=== PATIENT | male | born 1960 | race Caucasian/White ===

== ENCOUNTER 2021-01-17 13:17 | Emergency (ER) | payer BC, SELFPAY ==
[2021-01-17] VITALS (20 sets, daily range): BP systolic 92–128; BP diastolic 32–70; PULSE 105–117; RESP 18–20; TEMP 36.6–36.9; O2SAT 91–100; BMI 27.1
--- NOTE | 2021-01-17 13:19 | ECG_ITS ---
APPROVED REPORT Exam: Resting ECG HR:115 bpm ECG Measurements Heart Rate 115 AXES MA 132 P 68 QRSd 88 QRS -3 QT 324 T 180 QTc 448 Conclusion Sinus tachycardia Marked ST abnormality, possible inferior subendocardial injury Abnormal ECG Electronically signed by : James hCong, 01/17/2021 18:53:57
--- NOTE | 2021-01-17 13:19 | XR_ITS ---
PROCEDURE: XR CHEST PORTABLE CLINICAL HISTORY: chest pain COMPARISON: CT CT ANGIO CHEST from 01/17/2021 there are no prior x-ray studies available for comparison. FINDINGS: There is pulmonary vascular congestion and changes related to chronic interstitial this thickening. Superimposed process could be obscured. Patient has had prior median sternotomy. Cardiac silhouette is within normal limits. Mediastinal contours are unremarkable. There are no pleural effusions. IMPRESSION: No acute findings. Pulmonary vascular congestion. With right basilar bronchiectasis and chronic interstitial thickening. Superimposed process cannot be excluded. Dictated by: Charley Ruiz 01/17/2021 14:32 Charley Ruiz in [facility] 01/17/2021 14:32
--- NOTE | 2021-01-17 13:19 | CT_ITS ---
PROCEDURE: CT ANGIO CHEST CLINCIAL INDICATION: chest pain, to back COMPARISON: CR XR CHEST PORTABLE from 01/17/2021 TECHNIQUE: IV Contrast: 100 cc Isovue 370 followed by 40 cc saline Axial images obtained with sagittal and coronal reformats. All CT scans at the facility use one or more dose reduction, viz: automated exposure control, ma/kV adjustment per patient size (including targeted exams where dose is matched to indication, i.e. head), or iterative reconstruction technique. FINDINGS: Patient is status prior median sternotomy. 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 There is no infiltrate. There is bibasilar pleural parenchymal scarring. There is developing bibasilar interstitial edema. There is peribronchial interstitial edema. There is no infiltrate. There are no suspicious pulmonary nodules. There are no pleural effusions. Visualized portions of the thyroid gland are unremarkable. There is no suspicious adenopathy. There is prominence of the pulmonary trunks suspicious for pulmonary arterial hypertension. The thoracic aorta has a normal appearance without dissection or aneurysmal dilatation. There is no pulmonary embolus. There is a no pericardial effusion. The visualization of the upper abdomen is available. Refer to CT abdomen and pelvis for abdomen findings. IMPRESSION: Developing interstitial edema. Probable pulmonary arterial hypertension. Refer to abdomen pelvis CT for abdomen pelvis findings Dictated by: Charley Ruiz MD 01/17/2021 14:47 Charley Ruiz MD in [facility] 01/17/2021 14:47
[2021-01-17 13:26] LABS: Basophils % 0.3 % (0.1-2.0); Eosinophils % 0.1 % (0.1-12.0); Lymphocytes # 2.5 K/mm3 (0.7-4.5); Lymphocytes % 19.3 % (10-50); Mean Corpuscular HGB Conc 25.7 g/dL (31.8-35.4); Mean Corpuscular Hemoglobin 16.6 pg (27.0-31.2); Mean Corpuscular Volume 64.5 fl (80-94); Mean Platelet Volume 8.5 fl (7.4-10.4); Monocytes # 0.6 K/mm3 (0.1-1.0); Monocytes % 4.4 % (1.7-9.3); Neutrophils # 9.7 K/mm3 (1.8-7.8); Neutrophils % 75.9 % (37.0-80.0); Platelet Count 382 K/mm3 (142-424); Red Blood Count 2.76 M/mm3 (4.60-6.20); Red Cell Distribution Width 15.9 % (11.5-17.5); White Blood Count 12.8 K/mm3 (4.8-10.8)
--- NOTE | 2021-01-17 13:27 | HMH.EDGENADL ---
ED Disposition Clinical Impression: Acute blood loss anemia, NSTEMI (non-ST elevated myocardial infarction) GI bleed Qualifiers: GI bleed type/associated pathology: unspecified gastrointestinal hemorrhage type Qualified Code(s): K92.2 - Gastrointestinal hemorrhage, unspecified Disposition: Xfer Critical Access Hosp Condition on Discharge: Critical Referrals: Dodie Thompson [Primary Care Provider] - Time of Disposition: 15:33 - Critical Care Critical Care Time: Yes Attestation: On , the high probability of a clinically significant, sudden or life threatening deterioration of the following system(s) required my full and direct attention, intervention and personal management. The time I documented below is in addition to time spent performing reported procedures but includes the following listed in this critical care notation. Total Critical Care Time: 35 Vital system(s) involved:: Circulatory Failure My critical care processes included: Assessment & monitoring of V/S, Initial and Re-exams, Data Review/Interpretation, Coordinating Care, Medication Orders and management, Documentation Medical Decision Making - Medical Records Medical records reviewed: Yes: I reviewed the patient's medical records. - Janak Inquiry Pt receiving controlled substance: No Vital Signs: 01/17/21 13:17 01/17/21 13:34 01/17/21 15:00 Temperature 98.1 F Temperature Source Oral Pulse Rate [Left Radial] 117 H 107 H 112 H Respiratory Rate 20 Blood Pressure [Right Arm] 92/61 L 92/54 L 102/60 L Blood Pressure Mean [Right Arm] 71 66 74 Blood Pressure Source [Right Arm] Automatic Cuff Automatic Cuff Automatic Cuff Blood Pressure Position [Right Arm] Sitting Sitting Sitting 02 Sat by Pulse Oximetry 91 L 99 100 Oxygen Delivery Method Room Air Nasal Cannula Room Air Oxygen Flow Rate (LPM) 2 - Lab Data Lab Results 01/17/21 13:18: WBC 12.8 H, RBC 2.76 L, Hgb 4.6 L*, Hct 17.8 L*, MCV 64.5 L, MCH 16.6 L, MCHC 25.7 L, RDW 15.9, Plt Count 382, MPV 8.5, Neut % (Auto) 75.9, Lymph % (Auto) 19.3, [place] % (Auto) 4.4, Eos % (Auto) 0.1, Baso % (Auto) 0.3, Neut # (Auto) 9.7 H, Lymph # (Auto) 2.5, [place] # (Auto) 0.6, Eos # (Auto) 0.0, Baso # (Auto) 0.0 01/17/21 13:18: Sodium 137, Potassium 4.4, Chloride 104, Carbon Dioxide 13 L, Anion Gap 24.4 H, BUN 22 H, Creatinine 0.90, Estimated Creat Clear 112, Estimated GFR 86, Est GFR ( Amer) 104, Glucose 180 H, Calcium 9.9, Total Bilirubin 0.4, AST 35, ALT 29, Alkaline Phosphatase 69, Troponin I 0.41 H, Total Protein 7.1, Albumin 4.6, Globulin 2.5, Albumin/Globulin Ratio 1.8 01/17/21 13:36: Stool Occult Blood Positive A 01/17/21 13:43: Blood Type B Positive, Crossmatch (AHG) See Detail 01/17/21 14:20: Blood Type Confirm B Positive Result diagrams: 01/17/21 13:18 01/17/21 13:18 Orders (Tests/Meds): ED MEDICATIONS Generic Name Dose Route Start Last Admin Trade Name Freq PRN Reason Stop Dose Admin Sodium Chloride 250 mls @ 25 mls/hr 01/17/21 14:00 01/17/21 15:07 Sod Chlor 0.9% 250ml Bag IV 01/18/21 13:59 25 mls/hr .Q10H NAOMIE Administration Discontinued Medications Generic Name Dose Route Start Last Admin Trade Name Freq PRN Reason Stop Dose Admin Aspirin 325 mg 01/17/21 13:20 01/17/21 13:30 Aspirin 325mg Tablet PO 01/17/21 13:21 325 mg ONCE ONE Administration Iopamidol 100 ml 01/17/21 14:15 01/17/21 14:16 Iopamidol-370 (76%);100ml Bottle IV 01/17/21 14:16 100 ml ONCE ONE Administration Sodium Chloride 50 ml 01/17/21 14:15 01/17/21 14:16 0.9 % Sodium Chloride 50 Ml Vial IV 01/17/21 14:16 50 ml ONCE ONE Administration Sodium Chloride 10 ml 01/17/21 14:15 01/17/21 14:16 Sodium Chloride 0.9% 10ml Syr (Rad Only) IV 01/17/21 14:16 10 ml ONCE ONE Administration ORDERS Category Date Time Status Transfuse RBC's [Red Blood Cells] Stat [facility] 01/17/21 13:43 Results Type and Screen Stat [facility] 01/17/21 13:43 Results Covid-19 Nasal PC
--- NOTE | 2021-01-17 13:33 | CT_ITS ---
Procedure: CT ANGIO ABDOMEN PELVIS CLINICAL HISTORY: abdominal pain, anemia 100ml Optiray 350 COMPARISON: CT CT ANGIO CHEST from 01/17/2021 TECHNIQUE: IV Contrast: 100ml Isovue 370 Axial images obtained with sagittal and coronal reformats. All CT scans at the facility use one or more dose reduction, viz: automated exposure control, ma/kV adjustment per patient size (including targeted exams where dose is matched to indication, i.e. head), or iterative reconstruction technique. FINDINGS: Refer to chest CT dictation obtained on the same date for chest findings. There is no intraperitoneal free air or free fluid. The solid abdominal organs have a normal appearance on the arterial phase image acquisition. There is mild prostatic enlargement. Urinary bladder and seminal vesicles are unremarkable. There are scattered diverticuli within the descending and sigmoid colon. Linear high density along the mucosal surface indicates probable active gastric bleeding. Less likely this could represent an ingested substance. Remainder of the GI tract is unremarkable. There is no abdominal or pelvic adenopathy. There is scattered atherosclerotic calcification within the aorta and branch vessels which causes variable narrowing in the iliac arteries. IMPRESSION: Active extravasation of contrast during arterial phase into the gastric antrum. ER staff was notified of this finding. Dictated by: Charley Ruiz 01/17/2021 15:11 Charley Ruiz in [facility] 01/17/2021 15:11
--- NOTE | 2021-01-17 13:33 | PC.NURSE ---
Critical lab values called to LESLY Kimbrough
[2021-01-17 13:34] LABS: Chloride 104 mmol/L (98-107); Potassium 4.4 mmoL/L (3.5-5.1); Sodium 137 mmol/L (136-145)
[2021-01-17 13:37] LABS: Alanine Aminotransferase 29 U/L (12-78); Albumin Level 4.6 g/dl (3.5-5.0); Albumin/Globulin Ratio 1.8 (1.1-1.8); Alkaline Phosphatase 69 U/L (38-126); Anion Gap 24.4 mEq/L (5-15); Aspartate Amino Transferase 35 U/L (17-59); Bilirubin,Total 0.4 mg/dl (0.2-1.3); Blood Urea Nitrogen 22 mg/dl (9-20); Calcium 9.9 mg/dl (8.4-10.2); Carbon Dioxide 13 mmol/L (22.0-30.0); Creatinine Clearance Estimated 112 mL/min (50-200); Estimated Glomerular Filt Rate 86 ml/min (>60); GFR (African American) 104 ML/MIN (>60); Globulin 2.5 g/dL (1.3-3.2); Glucose 180 mg/dl (74-100); Total Protein,Serum 7.1 g/dl (6.3-8.2)
[2021-01-17 13:45] LABS: Occult Blood,Stool Positive (Negative)
[2021-01-17 13:49] LABS: Troponin I 0.41 ng/ml (0.00-0.034)
[2021-01-17 13:50] LABS: Hematocrit 17.8 % (42.0-52.0); Hemoglobin 4.6 g/dL (14.1-18.0)
--- NOTE | 2021-01-17 13:51 | PC.NURSE ---
Rad at bedside
--- NOTE | 2021-01-17 13:57 | PC.NURSE ---
Pt to rad.
--- NOTE | 2021-01-17 14:08 | PC.NURSE ---
calling [facility] to get medical records
--- NOTE | 2021-01-17 15:18 | PC.NURSE ---
Radiologist gave critical report to ED provider at this time, [facility] contacted at this time for possible patient transfer.
--- NOTE | 2021-01-17 15:19 | PC.NURSE ---
spoke with radiologist regarding CT findings
--- NOTE | 2021-01-17 15:19 | PC.NURSE ---
Calling [facility] at this time
--- NOTE | 2021-01-17 15:23 | PC.NURSE ---
Notified Blood was ready
--- NOTE | 2021-01-17 15:24 | PC.NURSE ---
DEB DUKE speaking with Dr. Archibald at [facility].
[2021-01-17 17:22] LABS: Troponin I 0.92 ng/ml (0.00-0.034)
--- NOTE | 2021-01-17 17:22 | PC.NURSE ---
critical trop called to Jhonatan Khanna RN
== END 2021-01-17 17:42 | disposition critical access hospital (66) ==
PROVIDERS: Emergency Provider Emergency Medicine; PCP Family Medicine
DX: I21.4 Non-ST elevation (NSTEMI) myocardial infarction (principal); K92.2 Gastrointestinal hemorrhage, unspecified; D62 Acute posthemorrhagic anemia; E11.65 Type 2 diabetes mellitus with hyperglycemia; I25.10 Atherosclerotic heart disease of native coronary artery without angina pectoris; F17.210 Nicotine dependence, cigarettes, uncomplicated; I10 Essential (primary) hypertension; Z79.899 Other long term (current) drug therapy
CPT/HCPCS: 36415; 36430; 71045; 71275; 74174; 80053; 82272; 84484; 85025; 86850; 93005; 96365; 96375; 99284; G0328; P9016; Q9967; U0003

== ENCOUNTER → 2021-12-04 14:49 | Outpatient (CLI) | payer BC, SELFPAY | PROVIDERS: PCP Family Medicine; Visit Provider Nurse Practitioner | DX: U07.1 COVID-19 (principal) | CPT/HCPCS: C9803; U0003; U0005 ==

== ENCOUNTER 2024-07-13 09:40 | Inpatient (IN) | payer MEDICARE, SELFPAY ==
[2024-07-13] VITALS (61 sets, daily range): BP systolic 70–126; BP diastolic 40–108; PULSE 38–125; RESP 21–37; TEMP 35–37.2; O2SAT 84–100; BMI 24.3; BMI 23.6
--- NOTE | 2024-07-13 09:37 | ECG_ITS ---
APPROVED REPORT Exam: Resting ECG HR:108 bpm ECG Measurements Heart Rate 108 AXES AK 151 P 61 QRSd 124 QRS -25 QT 351 T 190 QTc 414 Conclusion Sinus tachycardia, T wave inversions in lead I, V4 5 and 6, ST depressions in lead II, left axis deviation Electronically signed by : Erica Funes, 07/13/2024 16:21:35
[2024-07-13 10:06] LABS: VBG Base Excess -12.4 mmol/L (-2.4-2.3); VBG HCO3 13.2 mmol/L (23-30); VBG Oxygen Saturation 98.8 % (50-70); VBG PCO2 24.1 mmol/L (35-51); VBG PH 7.36 mmol/L (7.31-7.41); VBG Total CO2 13.9 mmol/L (23-27)
[2024-07-13 10:07] LABS: Lactate Venous 7.4 mmol/L (0.4-2.0)
--- NOTE | 2024-07-13 10:08 | PC.NURSE ---
Sharon called [facility] results pH: 7.36, CO2 24.1, PO2 156, Bicarb 13, Lactate 7.4. Repeated and confirmed. Dr. Shantel tee.
[2024-07-13 10:13] LABS: Albumin Level 3.9 g/dl (3.5-5.0); Chloride 106 mmol/L (98-107); Potassium 3.9 mmoL/L (3.5-5.1); Sodium 134 mmol/L (136-145)
--- NOTE | 2024-07-13 10:13 | CT_ITS ---
FINAL REPORT TECHNIQUE: Then section axial CT images of the chest were obtained with contrast. Three-D reformatted images were also obtained.This study was performed with techniques to keep radiation doses as low as reasonably achievable (ALARA). Individualized dose reduction techniques using automated exposure control or adjustment of mA and/or kV according to the patient''s size were employed. CLINICAL HISTORY: Shortness of breath COMPARISON: None FINDINGS: There is no evidence of pulmonary embolism. There is no evidence of thoracic aortic aneurysm or dissection. The patient is post median sternotomy. There are multiple mildly enlarged mediastinal nodes which are nonspecific and favored to be reactive or neoplastic. There is no evidence of pulmonary mass or suspicious nodule. Small pleural effusions and atelectasis are noted. There is diffuse bronchial wall thickening consistent with bronchitis. IMPRESSION: No evidence of pulmonary embolism. Bilateral pleural effusions and atelectasis. Bronchial wall thickening consistent with bronchitis. Reviewed, Interpreted and Dictated by Tony Allen III, MD Transcribed by Tina Chung Authenticated and . [facility]
--- NOTE | 2024-07-13 10:13 | CT_ITS ---
FINAL REPORT TECHNIQUE: Pre-and postcontrast images of the abdomen through the pelvis were performed by computed tomography. Extensive 3-D reconstruction images were performed. A CTA was performed. This study was performed with techniques to keep radiation doses as low as reasonably achievable (ALARA). Individualized dose reduction techniques using automated exposure control or adjustment of mA and/or kV according to the patient's size were employed. CLINICAL HISTORY: BRBPR COMPARISON: None FINDINGS: ABDOMEN: Precontrast images demonstrate no evidence of nephrolithiasis. Bilateral adrenal gland enlargement is nonspecific. The patient is postcholecystectomy. The liver, spleen and pancreas are unremarkable. PELVIS: The appendix is normal. There is a moderate amount of retained stool. There are several sigmoid diverticula without evidence of diverticulitis. The urinary bladder is unremarkable. There is no significant free fluid or adenopathy. The bony pelvis is unremarkable. There is a small left inguinal hernia containing fat. CTA: There is no evidence of abdominal aortic aneurysm or dissection. There are diffuse vascular calcifications. The celiac axis and SMA are patent. There is mild stenosis of the proximal right renal artery without evidence of significant stenosis on the left. The MARY is patent. 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 There is diffuse iliac artery calcification. There is moderate bilateral external iliac artery stenosis. There is moderate stenosis of the left common femoral artery. IMPRESSION: Sigmoid diverticulosis. Mild right renal artery stenosis. Bilateral external iliac artery stenosis. Bilateral nonspecific adrenal gland enlargement favored to represent adenomas. Reviewed, Interpreted and Dictated by Tony Allen III, MD Transcribed by Tina Chung Authenticated and [facility]
[2024-07-13 10:15] LABS: Basophils # 0.1 K/mm3 (0-0.2); Basophils % 0.8 % (0.1-2.0); Eosinophils # 0.1 K/mm3 (0.0-0.4); Eosinophils % 0.7 % (0.1-12.0); Hematocrit 26.4 % (42.0-52.0); Hemoglobin 7.5 g/dL (14.1-18.0); Lymphocytes # 2.2 K/mm3 (0.7-4.5); Lymphocytes % 23.6 % (10-50); Mean Corpuscular HGB Conc 28.6 g/dL (31.8-35.4); Mean Corpuscular Hemoglobin 20.1 pg (27.0-31.2); Mean Corpuscular Volume 70.2 fl (80-94); Mean Platelet Volume 8.3 fl (7.4-10.4); Monocytes # 0.5 K/mm3 (0.1-1.0); Monocytes % 5.5 % (1.7-9.3); Neutrophils # 6.3 K/mm3 (1.8-7.8); Neutrophils % 69.4 % (37.0-80.0); Platelet Count 344 K/mm3 (142-424); Red Blood Count 3.76 M/mm3 (4.60-6.20); Red Cell Distribution Width 16.9 % (11.5-17.5); White Blood Count 9.1 K/mm3 (4.8-10.8)
[2024-07-13 10:16] LABS: Alanine Aminotransferase 31 U/L (12-78); Albumin/Globulin Ratio 1.8 (1.1-1.8); Alkaline Phosphatase 103 U/L (38-126); Anion Gap 18.9 mEq/L (5-15); Aspartate Amino Transferase 47 U/L (17-59); Bilirubin,Total 0.6 mg/dl (0.2-1.3); Blood Urea Nitrogen 19 mg/dl (9-20); Carbon Dioxide 13 mmol/L (22.0-30.0); Creatinine Clearance Estimated 76 mL/min (50-200); Estimated Glomerular Filt Rate 61 ml/min (>60); GFR (African American) 74 ML/MIN (>60); Globulin 2.2 g/dL (1.3-3.2); Magnesium 1.9 mg/dl (1.6-2.3); Total Protein,Serum 6.1 g/dl (6.3-8.2)
[2024-07-13 10:17] LABS: Calcium 8.9 mg/dl (8.4-10.2); Glucose 250 mg/dl (74-100)
--- NOTE | 2024-07-13 10:19 | XR_ITS ---
FINAL REPORT CLINICAL HISTORY: soa, sepsis COMPARISON: 06/20/2024 FINDINGS: A single portable view of the chest was obtained. Cardiomegaly and pulmonary vascular congestion are present in this patient with a prior midline sternotomy. The mediastinum is within normal limits. New right base opacities are present, consistent with pneumonia. Degenerative changes present in the shoulders bilaterally. IMPRESSION: New right base opacities, consistent with pneumonia. Cardiomegaly and pulmonary vascular congestion persist. Reviewed, Interpreted and Dictated by Tony Allen III, MD Transcribed by Shelly Mercado Authenticated and [facility]
[2024-07-13 10:22] LABS: INR 1.01 (0.9-1.1); Prothrombin Time 11.3 seconds (10.1-12.5)
--- NOTE | 2024-07-13 10:22 | PC.NURSE ---
Addendum entered by Esteban Portillo RN 07/13/24 10:28: 0950 20 R FA 20 L HAND 18 L FA 1005 arterial line placed in right radial artery. Original Note: pt presented to ED, ED staff went outside to get pt from vehicle. upon arrival outside staff got pt into wheelchair. pt borught back immediately. pt pale, daiphoretic, unable to answer questions. 0935 glucose 218 0937 first EKG unable to obtain blood pressure via machine, manual blood pressure, 60/palpation. pt placed on non rebreather until oxygen saturation obtained. 1000 85/55 1005 78/53 1015 84/50 1020 85/59 1025 78/55
[2024-07-13] MEDS: NOREPINEPHRINE BITARTRATE/D5W 8 MG/250 ML PLAST..BAG 15 MG IV (10:30)
[2024-07-13] MEDS: VASOPRESSIN 40 UNIT in 0.9 % SODIUM CHLORIDE 100 ML 4.59 UNIT IV (10:31)
[2024-07-13] MEDS: PIPERACILLIN/TAZO 4.5 GM in 0.9 % SODIUM CHLORIDE 100 ML IV (10:31)
[2024-07-13] MEDS: LACTATED RINGERS 1000ML 2,470 ML 1235 ML IV (10:35)
--- NOTE | 2024-07-13 10:38 | PC.NURSE ---
Sukh in LAB called critical Trop of 2.20. Repeated and confirmed. Dr. Marx made aware.
--- NOTE | 2024-07-13 10:39 | PC.NURSE ---
Dr. Funes speaking with Dr. Marcelo
--- NOTE | 2024-07-13 10:42 | PC.NURSE ---
calling [facility] for [facility] transfer for ent services
[2024-07-13 10:47] LABS: NT Pro Brain Natriuretic Pep. 7640 pg/mL (0-125)
[2024-07-13] MEDS: HYDROCORTISONE SOD SUCCINATE 100MG VIAL 50 MG IV (10:50)
[2024-07-13] MEDS: EPINEPHrine 5 MG in 0.9 % SODIUM CHLORIDE 250 ML 6.12 MG IV (10:51)
[2024-07-13] MEDS: VANCOMYCIN/WATER FOR INJ (PEG) 1.75 GM/350 ML PIGGYBACK IV (10:52)
--- NOTE | 2024-07-13 10:56 | PC.NURSE ---
Dr. Marcelo at [facility] for pt eval
--- NOTE | 2024-07-13 10:59 | ECG_ITS ---
APPROVED REPORT Exam: Resting ECG HR:86 bpm ECG Measurements Heart Rate 86 AXES GA 132 P 84 QRSd 125 QRS 110 QT 388 T 158 QTc [address] depressions in lead I, II, V4, V5, V6, normal axis Electronically signed by : Erica Funes, 07/13/2024 16:20:16
--- NOTE | 2024-07-13 11:11 | PC.NURSE ---
calling for medical records on stents placed and last visit
[2024-07-13 11:17] LABS: Microscopic, Urine URINE MICROSCOPIC (MICROSCOPIC)
[2024-07-13 11:19] LABS: Appearance,Urine CLEAR (Clear); Blood, Urine TRACE-I (Negative); Color,Urine YELLOW (Yellow); Glucose,Urine (UA) 2+ (Negative); Ketones,Urine TRACE (Negative); Leukocyte Esterase,Urine Negative (Negative); Nitrate,Urine Negative (Negative); Protein,Urine 2+ (Negative); Specific Gravity, Urine >= 1.030 (1.005-1.030); Urobilinogen,Urine 0.2 EU/dl (0.2)
[2024-07-13 11:27] LABS: Bilirubin,Urine 1+ (Negative)
[2024-07-13 11:30] LABS: Bacteria,Urine Trace /lpf
[2024-07-13] MEDS: 0.9 % SODIUM CHLORIDE 50 ML VIAL IV (11:32)
[2024-07-13] MEDS: IOPAMIDOL-370 (76%);100ML BOTTLE 80 ML IV (11:32)
--- NOTE | 2024-07-13 12:40 | XR_ITS ---
FINAL REPORT TECHNIQUE: Single view chest CLINICAL HISTORY: central line placement FINDINGS: A single view of the chest was obtained. The heart is enlarged. Patient is status post median sternotomy. There is mild pulmonary vascular congestion. There is a right jugular deep line with the tip in the region of the mid SVC. There is mild bibasilar atelectasis or scarring. There is no pneumothorax. IMPRESSION: Right jugular deep line with the tip in the mid SVC. No pneumothorax. Mild bibasilar atelectasis or scarring. Reviewed, Interpreted and Dictated by Tnoy Allen III, MD Transcribed by Narcisa Mejias Authenticated and [facility]
--- NOTE | 2024-07-13 13:19 | PC.NURSE ---
on phone with hospitalist
--- NOTE | 2024-07-13 13:35 | HMH.PHAINT1 ---
Pharmacy Intervention Comments: MEDICATION RECONCILIATION COMPLETED ON PATIENT USING EXTERNAL FILL HISTORY FROM PHARMACY. -BRITTANY ADAMS, [place]
[2024-07-13 14:07] LABS: Reflex Lactic Add Lactic Reflex
[2024-07-13 14:08] LABS: Troponin I 0.82 ng/ml (0.00-0.034)
--- NOTE | 2024-07-13 14:08 | HMH.EDGENADL ---
Discharge Plan Disposition Patient Disposition: Admitted Condition: Critical Chief Complaint: Shortness of Breath/Dyspnea Clinical Impressions Clinical Impression: Septic shock, Cardiogenic shock Discharge ED Provider: Erica Funes General Adult HPI General Chief complaint: Shortness of Breath/Dyspnea Stated complaint: chest pain Time Seen by Provider: 07/13/24 09:42 Mode of Arrival: Wheelchair Source of Information: Patient and Relative Limitations: No Limitations Description of Symptoms (Recalled from ER Triage Doc. by RN): pt presented to Ed in wheelchair. pt waso n the way to [facility] with his sister driving. sister reports that pt began to have shortness of breath, become royal and diaphoretic. sister reports pt told her that he has been having dark stools. pt has been at [facility] for heart caths within the past two weeks. History of Present Illness HPI narrative: Patient is a 64-year-old with past medical history significant for coronary artery disease recent heart cath who presents to the emergency department with shortness of breath and unresponsiveness. History obtained per family. 2 weeks ago he had a heart cath at [facility]. Patient has history of stents. 3 days ago patient had 3 episodes of bright red blood per rectum has had worsening shortness of breath over the last 3 days had a low blood pressure yesterday this morning family went to go check on patient and he was pale diaphoretic. Patient is also been coughing more often frequently Related Data Home Medications ?Medication ?Instructions ?Recorded ?Confirmed lisinopril 20 mg tablet 20 mg PO DAILY 01/17/21 07/13/24 metformin 1,000 mg tablet 1,000 mg PO BIDWMEAL 01/17/21 07/13/24 metoprolol tartrate 25 mg tablet 25 mg PO BID 01/17/21 07/13/24 simvastatin 40 mg tablet 40 mg PO HS Cholesterol 01/17/21 07/13/24 cilostazol 100 mg tablet 100 mg PO BID 07/13/24 07/13/24 clopidogrel 75 mg tablet 75 mg PO DAILY 07/13/24 07/13/24 montelukast 10 mg tablet 10 mg PO PM 07/13/24 07/13/24 nicotine 21 mg/24 hr daily 21 mg transdermal DAILY 07/13/24 07/13/24 transdermal patch Allergies Allergy/AdvReac Type Severity Reaction Status Date / Time No Known Drug Allergies Allergy Verified 01/17/21 13:26 [facility] Disclaimer: The information contained in this section may have been updated after the patient was seen, as this information can be updated by other users. Social History Smoking Status: Current every day smoker tobacco type: cigarettes packs per day: 1 alcohol intake: never current occupational status: disabled Travel in the last 8 weeks: None ROS Obtained: Yes All systems reviewed & no additional complaints except as documented Physical Exam General General appearance: in distress Comment: Diaphoretic and pale Eye Eye exam: Present EOMI ENT ENT exam: Present mucous membranes dry Respiratory Respiratory exam: Present respiratory distress and accessory muscle use (Inspiratory crackles bilaterally) Cardiovascular Cardiovascular exam: Present normal rhythm, tachycardia and JVD Abdominal Exam Abdominal exam: Present soft; Absent tenderness or guarding Rectal Exam Rectal exam: Present normal inspection and normal rectal tone; Absent bloody stool, fecal impaction or hemorrhoids Neurological Exam Neurological exam: Present other (GCS eye: 3 motor: 3 verbal 4) Skin Skin exam: Present diaphoresis Medical Decision Making Medical Records Medical records reviewed: Yes I reviewed the patient's medical records. Janak Inquiry Pt receiving controlled substance: No Vital Signs: 07/13/24 09:41 07/13/24 10:00 07/13/24 10:05 Temperature Temperature Source Pulse Rate 88 94 H Pulse Rate [Left Radial] 75 Respiratory Rate 22 TAR Vitals Timing Blood Pressure 85/55 L 78/53 L Blood Pressure [Right Arm] 76/51 L Blood Pressure Mean 63 59 Blood Pressure Mean [Right Arm] 59 02 Sat by Pulse Oximetry 100 99 99 Oxygen Delivery Method Non-Rebreather 07/13/24 10:10 07/13/24 10:15 07/13/24 10:20 Temperature Temperature Source Pulse Rate 88 89 76 Pulse Rate [Left Radial] Respiratory Rate TAR Vitals Timing Blood Pressure 75/50 L 84/50 L 85/59 L Blood Pressure [Right Arm] Blood Pressure Mean 57 60 65 Blood Pressure Mean [Right Arm] 02 Sat by Pulse Oximetry 100 100 99 Oxygen Delivery Method 07/13/24 10:25 07/13/24 10:29 07/13/24 10:35 Temperature Temperature Source Pulse Rate 94 H 91 H 90 Pulse Rate [Left Radial] Respiratory Rate TAR Vitals Timing Blood Pressure 78/55 L 83/55 L 96/58 L Blood Pressure [Right Arm] Blood Pressure Mean 59 62 70 Blood Pressure Mean [Right Arm] 02 Sat by Pulse Oximetry 99 98 98 Oxygen Delivery Method 07/13/24 10:40 07/13/24 10:45 07/13/24 10:50 Temperature Temperature Source Pulse Rate 90 95 H 97 H Pulse Rate [Left Radial] Respiratory Rate TAR Vitals Timing Blood Pressure 94/59 L 95/60 L 95/59 L Blood Pressure [Right Arm] Blood Pressure Mean 71 66 69 Blood Pressure Mean [Right Arm] 02 Sat by Pulse Oximetry 98 98 96 Oxygen Delivery Method 07/13/24 10:55 07/13/24 11:00 07/13/24 11:05 Temperature Temperature Source Pulse Rate 98 H 99 H 100 H Pulse Rate [Left Radial] Respiratory Rate TAR Vitals Timing Blood Pressure 91/62 L 93/64 L 90/61 L Blood Pressure [Right Arm] Blood Pressure Mean 69 71 69 Blood Pressure Mean [Right Arm] 02 Sat by Pulse Oximetry 96 95 96 Oxygen Delivery Method 07/13/24 11:10 07/13/24 11:42 07/13/24 11:45 Temperature Temperature Source Pulse Rate 98 H 95 H 99 H Pulse Rate [Left Radial] Respiratory Rate TAR Vitals Timing Blood Pressure 91/54 L 83/48 L 88/57 L Blood Pressure [Right Arm] Blood Pressure Mean 68 64 64 Blood Pressure Mean [Right Arm] 02 Sat by Pulse Oximetry 95 96 96 Oxygen Delivery Method 07/13/24 11:49 07/13/24 11:55 07/13/24 12:00 Temperature Temperature Source Pulse Rate 103 H 107 H 102 H Pulse Rate [Left Radial] Respiratory Rate TAR Vitals Timing Blood Pressure 88/58 L 92/60 L 94/67 L Blood Pressure [Right Arm] Blood Pressure Mean 68 68 74 Blood Pressure Mean [Right Arm] 02 Sat by Pulse Oximetry 95 95 94 L Oxygen Delivery Method 07/13/24 12:05 07/13/24 12:10 07/13/24 12:15 Temperature Temperature Source Pulse Rate 106 H 102 H 104 H Pulse Rate [Left Radial] Respiratory Rate TAR Vitals Timing Blood Pressure 93/65 L 89/60 L 97/60 L Blood Pressure [Right Arm] Blood Pressure Mean 73 66 72 Blood Pressure Mean [Right Arm] 02 Sat by Pulse Oximetry 94 L 93 L 96 Oxygen Delivery Method 07/13/24 12:20 07/13/24 12:25 07/13/24 12:30 Temperature Temperature Source Pulse Rate 105 H 101 H 107 H Pulse Rate [Left Radial] Respiratory Rate TAR Vitals Timing Blood Pressure 88/56 L 101/57 L 106/66 L Blood Pressure [Right Arm] Blood Pressure Mean 62 71 80 Blood Pressure Mean [Right Arm] 02 Sat by Pulse Oximetry 95 95 94 L Oxygen Delivery Method 07/13/24 12:35 07/13/24 12:40 07/13/24 12:45 Temperature Temperature Source Pulse Rate 111 H 111 H 103 H Pulse Rate [Left Radial] Respiratory Rate TAR Vitals Timing Blood Pressure 104/66 L 102/69 L 101/67 L Blood Pressure [Right Arm] Blood Pressure Mean 77 77 74 Blood Pressure Mean [Right Arm] 02 Sat by Pulse Oximetry 95 95 100 Oxygen Delivery Method 07/13/24 12:50 07/13/24 12:55 07/13/24 13:01 Temperature Temperature Source Pulse Rate 109 H 112 H 111 H Pulse Rate [Left Radial] Respiratory Rate TAR Vitals Timing Blood Pressure 94/66 L 94/53 L 97/71 L Blood Pressure [Right Arm] Blood Pressure Mean 72 66 79 Blood Pressure Mean [Right Arm] 02 Sat by Pulse Oximetry 100 100 99 Oxygen Delivery Method 07/13/24 13:05 07/13/24 13:34 07/13/24 13:53 Temperature 97.5 F L 97.8 F Temperature Source Oral Pulse Rate 110 H 112 H Pulse Rate [Left Radial] Respiratory Rate 29 H TAR Vitals Timing Pre-Blood Vitals Blood Pressure 101/66 L 97/62 L Blood Pressure [Right Arm] Blood Pressure Mean 77 73 Blood Pressure Mean [Right Arm] 02 Sat by Pulse Oximetry 100 95 Oxygen Delivery Method 07/13/24 14:00 Temperature 97.8 F Temperature Source Oral Pulse Rate 112 H Pulse Rate [Left Radial] Respiratory Rate 24 TAR Vitals Timing Start Vitals Blood Pressure 93/64 L Blood Pressure [Right Arm] Blood Pressure Mean 73 Blood Pressure Mean [Right Arm] 02 Sat by Pulse Oximetry 94 L Oxygen Delivery Method Lab Data Lab Results 07/13/24 09:47: WBC 9.1, RBC 3.76 L, Hgb 7.5 L, Hct 26.4 L, MCV 70.2 L, MCH 20.1 L, MCHC 28.6 L, RDW 16.9, Plt Count 344, MPV 8.3, Neut % (Auto) 69.4, Lymph % (Auto) 23.6, [place] % (Auto) 5.5, Eos % (Auto) 0.7, Baso % (Auto) 0.8, Neut # (Auto) 6.3, Lymph # (Auto) 2.2, [place] # (Auto) 0.5, Eos # (Auto) 0.1, Baso # (Auto) 0.1, PT 11.3, INR 1.01, Sodium 134 L, Potassium 3.9, Chloride 106, Carbon Dioxide 13 L, Anion Gap 18.9 H, BUN 19, Creatinine 1.20, Estimated Creat Clear 76, Estimated GFR 61, Est GFR ( Amer) 74, Glucose 250 H, Lactate 8.0 H, Calcium 8.9, Magnesium 1.9, Total Bilirubin 0.6, AST 47, ALT 31, Alkaline Phosphatase 103, Troponin I 2.20 H, NT-Pro-B Natriuret Pep 7640 H, Total Protein 6.1 L, Albumin 3.9, Globulin 2.2, Albumin/Globulin Ratio 1.8 07/13/24 10:04: VBG pH 7.36, VBG pCO2 24.1 L, VBG pO2 156.0 H, VBG HCO3 13.2 L, VBG Total CO2 13.9 L, VBG O2 Saturation 98.8 H, VBG Base Excess -12.4 L, VBG Lactic Acid 7.4 H 07/13/24 11:14: Urine Color Yellow, Urine Appearance Clear, Urine pH 6.0, Ur Specific Steptoe >= 1.030, Urine Protein 2+, Urine Glucose (UA) 2+, Urine Ketones Trace, Urine Blood Trace-i, Urine Nitrate Negative, Urine Bilirubin 1+ A, Urine Urobilinogen 0.2, Ur Leukocyte Esterase Negative, Urine WBC 5-10, Urine Bacteria Trace, Hyaline Casts 3-5 07/13/24 12:20: Blood Type B Positive, Antibody Screen Negative, Crossmatch (AHG) See Detail 07/13/24 09:47 07/13/24 09:47 Orders (Tests/Meds): ED MEDICATIONS Generic Name Dose Route Start Last Admin Trade Name Freq PRN Reason Stop Dose Admin Acetaminophen 650 mg 07/13/24 13:26 Acetaminophen 325mg Tab PO 08/12/24 13:25 Q4HP PRN Fever or Mild Pain (1-3) Heparin Sodium (Porcine) 5,000 unit 07/13/24 13:45 Heparin Sodium 5,000 Unit/Ml Vial SQ 08/12/24 13:44 Q8H NAOMIE Norepinephrine/Dextrose 8 mg in 250 mls @ 37.5 mls/hr 07/13/24 10:30 07/13/24 12:10 Norepinephrine 8mg/250ml-D5w Premix IV 08/12/24 10:29 20 mcg/min .Q6H40M NAOMIE 37.5 mls/hr Titration Protocol 20 MCG/MIN Vasopressin 40 unit/ Sodium 102 mls @ 1.53 mls/hr 07/13/24 10:30 07/13/24 11:07 Chloride IV 08/12/24 10:29 0 units/min .Q24H NAOMIE 0 mls/hr Titration Protocol 0.01 UNITS/MIN Epinephrine HCl 5 mg/ Sodium 255 mls @ 30.6 mls/hr 07/13/24 10:45 07/13/24 12:09 Chloride IV 08/12/24 10:44 10 mcg/min .Q8H20M NAOMIE 30.6 mls/hr Titration Protocol 10 MCG/MIN Sodium Chloride 250 mls @ 25 mls/hr 07/13/24 11:15 Sod Chlor 0.9% 250ml Bag IV 07/14/24 11:14 .Q10H NAOMIE Ondansetron HCl 4 mg 07/13/24 13:26 Ondansetron 4mg/2ml Vial IV 08/12/24 13:25 Q8HP PRN Nausea Discontinued Medications Generic Name Dose Route Start Last Admin Trade Name Freq PRN Reason Stop Dose Admin Hydrocortisone Sodium Succinate 50 mg 07/13/24 10:21 07/13/24 10:50 Hydrocortisone Sod Succinate 100mg Vial IV 07/13/24 10:22 50 mg ONCE ONE Administration Lactated Ringer's 500 mls @ 999 mls/hr 07/13/24 10:04 07/13/24 10:29 Lactated Ringer's 1000 Ml Bag IV 07/13/24 10:34 Not Given .Q31M ONE Lactated Ringer's 500 mls @ 999 mls/hr 07/13/24 10:05 07/13/24 10:30 Lactated Ringer's 1000 Ml Bag IV 07/13/24 10:35 Not Given .Q31M ONE Piperacillin Sod/Tazobactam 100 mls @ 200 mls/hr 07/13/24 10:11 07/13/24 10:31 Sod 4.5 gm/ Sodium Chloride IV 07/13/24 10:40 200 mls/hr ONCE ONE Administration Vancomycin/PEG/NADA/Lysine/Water 1.75 gm in 350 mls @ 175 mls/hr 07/13/24 10:15 07/13/24 10:52 Vancomycin 1.75gm/350ml (Peg) Premix IV 07/13/24 12:14 175 mls/hr ONCE ONE Administration Lactated Ringer's 2,470 mls @ 1,235 mls/hr 07/13/24 10:30 07/13/24 10:35 Lactated Ringer's 1000 Ml Bag 30 ml/kg infuse over 2 hr (2470 ml) 07/13/24 12:29 1,235 mls/hr IV Administration .Q2H ONE Pantoprazole Sodium 80 mg/ 100 mls @ 100 mls/hr 07/13/24 11:05 Sodium Chloride IV 07/13/24 12:04 ONCE ONE Iopamidol 80 ml 07/13/24 11:31 07/13/24 11:32 Iopamidol-370 (76%);100ml Bottle IV 07/13/24 11:32 80 ml ONCE ONE Administration Miscellaneous 1 each 07/13/24 10:15 Vancomycin Consult Request NOTAPPLIC 08/12/24 10:14 CONSULT PHARMACY NAOMIE Sodium Chloride 50 ml 07/13/24 11:31 07/13/24 11:32 0.9 % Sodium Chloride 50 Ml Vial IV 07/13/24 11:32 50 ml ONCE ONE Administration Sodium Chloride 10 ml 07/13/24 11:31 Sodium Chloride 0.9% 10ml Syr (Rad Only) IV 08/12/24 11:30 NEEDED PRN Maintain IV Site ORDERS Category Date Time Status Transfuse RBC's [Red Blood Cells] Stat BBK 07/13/24 12:20 Completed Type and Screen Stat BBK 07/13/24 12:[address] angio abdomen pelvis Stat Cat Scan 07/13/24 10:[address] angio chest PE protocol Stat Cat Scan 07/13/24 10:13 Completed Cardiology Consult [Consult to Cardiology] [CONS] Cons 07/13/24 13:25 Active Routine CXR --portable [XR chest portable] Stat Exams 07/13/24 12:40 Taken Chest XR -- portable [XR chest portable] Stat Exams 07/13/24 10:19 Completed POCUS Point of Care (ER Only) Stat Exams 07/13/24 09:42 Completed BNP [NT Pro Brain Natriuretic Pep.] Stat Lab 07/13/24 09:47 Completed Basic Metabolic Panel AMLAB Lab 07/14/24 06:00 Ordered Basic Metabolic Panel AMLAB Lab 07/15/24 06:00 Ordered Basic Metabolic Panel AMLAB Lab 07/16/24 06:00 Ordered Complete Blood Count Auto Diff Stat Lab 07/13/24 09:47 Completed Comprehensive Metabolic Panel AMLAB Lab 07/14/24 06:00 Ordered Comprehensive Metabolic Panel AMLAB Lab 07/15/24 06:00 Ordered Comprehensive Metabolic Panel AMLAB Lab 07/16/24 06:00 Ordered Comprehensive Metabolic Panel Stat Lab 07/13/24 09:47 Completed Lactic Acid Routine Lab 07/13/24 13:31 Ordered Lactic Acid Stat Lab 07/13/24 09:47 Completed Magnesium Stat Lab 07/13/24 09:47 Completed Occult Blood,Stool Stat Lab 07/13/24 13:21 Ordered PT INR [Prothrombin Time INR] Stat Lab 07/13/24 09:47 Completed Troponin I Q3H Lab 07/13/24 13:30 Received Troponin I Q3H Lab 07/13/24 16:00 Ordered Troponin I Q6H Lab 07/13/24 16:45 Ordered Troponin I Q6H Lab 07/13/24 22:45 Ordered Troponin I Stat Lab 07/13/24 09:47 Completed UA [Urinalysis and Microscopic] Stat Lab 07/13/24 11:14 Completed Blood Culture Stat Micro 07/13/24 09:47 Received Urine Culture Stat Micro 07/13/24 11:14 Received VBG [Venous Blood Gas] Stat RT 07/13/24 10:04 Completed Medical Decision Narrative: Patient is a 64-year-old with a past medical history significant for coronary artery disease status post stents recent heart cath who presents with altered mental status diaphoresis bright red blood per rectum chest pain and shortness of breath. Differential diagnosis includes PE tamponade septic cardiogenic shock heart failure exacerbation acute blood loss anemia secondary to upper or lower GI bleed. Upon arrival patient is toxic appearing diaphoretic pale initial vitals including hypotension 60 over palp tachycardia placed on a nonrebreather. Patient given 2 L of fluid resuscitation with improvement of blood pressure then required initiation of vasopressors. [id number] ultrasound performed with decreased EF. Avoided further fluid resuscitation. Patient's shock likely component of septic and cardiogenic secondary to cool extremities and decreased EF. Arterial line placed in right radial artery for consistent blood pressure monitoring. Patient reached requiring 0.3 mcg/kg/min of Levophed initiated vasopressin and stress dose steroids. Initial workup began to return with elevated initial troponin EKG personally interpreted and significant for ST depressions in lead II otherwise no ST elevations T wave inversions and sinus tachycardia. Further workup revealed elevated lactate in the setting of hypoperfusion. Patient started on broad-spectrum antibiotics for concern of sepsis. Secondary to elevated initial troponin cardiology was consulted for possible need for intervention for concern of NSTEMI complicated by cardiogenic shock. Cardiology recommended no acute intervention needed to go to the [employer] at this time. Cardiology also recommended initiation of ionotropic support patient was weaned off of vasopressin initiated on low-dose epinephrine. Patient developed chest pain with higher doses of epinephrine infusion. CT chest abdomen pelvis concerning for bilateral pleural effusions and right lower lobe consolidations. Central line placed. Patient given 80 mg of Protonix due to concern of possible GI bleed based off of history unknown if patient had black or bright red stools as he is not able to answer this question at this time. Patient transfused 1 unit PRBCs secondary to significant coronary artery disease chest pain and hypotension with hemoglobin of 7.5. Patient admitted to medical ICU for further management of septic and cardiogenic shock. Procedures Central Line Placement Right IJ: Time Out Performed: Yes Patient Placed on Monitor/Pulse Ox: Yes MD Prep: mask, gown and gloves Central Line Prep: Chlorhexidine scrub Local Anesthetic: lidocaine 1% Amount of anesthesia used (mL): 5 Ultrasound Used for Placement: Yes Central Line Lumen Inserted: triple Post Procedure: sutured in place, good blood return, all ports aspirated, flushed, capped and sterile dressing applied Post Procedure X-Ray: tip of catheter in good position and no pneumothorax seen Patient Tolerated Procedure: well and no complications Arterial Line Time Out Performed: Yes Size (Gauge): 20 Technique Used: guide wire technique Post-Procedure: line sutured into place Patient Tolerated Procedure: well Complications: none Site: right and radial Critical Care Critical Care Time Critical Care Time: Yes Attestation: On 07/13/24, the high probability of a clinically significant, sudden or life threatening deterioration of the following system(s) required my full and direct attention, intervention and personal management. The time I documented below is in addition to time spent performing reported procedures but includes the following listed in this critical care notation. Total Time Total Critical Care Time: 120
--- NOTE | 2024-07-13 14:13 | PC.NURSE ---
Sukh in lab called critical trop of 0.82. Repeated and confirmed. Dr. Funes made aware.
--- NOTE | 2024-07-13 14:18 | PC.NURSE ---
arrived by stretcher from ED
--- NOTE | 2024-07-13 15:00 | ECG_ITS ---
APPROVED REPORT Exam: Resting ECG HR:119 bpm ECG Measurements Heart Rate 119 AXES AL 189 P 45 QRSd 130 QRS 251 QT 331 T 88 QTc 401 Conclusion SINUS TACHYCARDIA RIGHT AXIS DEVIATION [QRS AXIS > 100] RIGHT BUNDLE BRANCH BLOCK [120+ ms QRS DURATION, UPRIGHT V1, 40+ ms S IN I/aVL/V4/V5/V6] ANTEROSEPTAL MYOCARDIAL INFARCTION , OF INDETERMINATE AGE [40+ ms Q WAVE IN V1-V4] ABNORMAL ECG UNCONFIRMED REPORT Electronically signed by : REN SANDERSON, 07/15/2024 06:56:30
[2024-07-13] MEDS: FUROSEMIDE 100MG/10ML VIAL 100 MG IV ×2 (15:03→15:23)
[2024-07-13] MEDS: SODIUM BICARBONATE 50 MEQ IV (15:03)
[2024-07-13 15:06] LABS: ABG PCO2 20.9 mmhg (35.0-45.0); ABG PO2 290.7 mmhg (80-100)
[2024-07-13 15:07] LABS: ABG HCO3 4.4 mmhg (22.0-26.0); ABG TCO2 5.1 mmhg (23-27)
[2024-07-13 15:08] LABS: ABG Oxygen Saturation 99 % (90-100)
[2024-07-13] MEDS: SODIUM BICARB 8.4% 50ML SYRINGE (CRASH CART) 50 MEQ IV (15:15)
--- NOTE | 2024-07-13 15:29 | XR_ITS ---
FINAL REPORT CLINICAL HISTORY: post rapid response COMPARISON: None FINDINGS: A single portable view of the chest was obtained. The heart size is enlarged. The pulmonary vascularity is within normal limits. There is evidence of prior median sternotomy. Right jugular deep line remains in place. Note is made of prominent skin fold overlying the left thorax. Worsening right base opacities are consistent with worsening pneumonia. The bony thorax is intact. IMPRESSION: Worsening right base pneumonia. Reviewed, Interpreted and Dictated by Tony Allen III, MD Transcribed by Tina Chung Authenticated and [facility]
--- NOTE | 2024-07-13 15:40 | CA_ITS ---
APPROVED REPORT EXAM: Comprehensive 2D, Doppler, and color-flow Echocardiogram Recoating Machine Operator: aJnelle Troibio CRT Ht: 6 ft 2 in Wt: 190lbs BSA: 2.13 BP: 78/53 mmHg Indications: Shortness of Breath, Non STEMI, CAD, CABG X 2010, POST CODE BLUE 2D Dimensions LA Volume 55.60 mL LA Volume Index 25.50 mL/m2 (M/F) 16-34 M-Mode Dimensions RVDd 2.55 cm (0.9-2.6) LA Diam 3.30 cm (1.9-4.0) LVDd 6.25 cm (3.5-5.7) LVDs 5.18 cm (3.5-5.7) IVSd 1.47 cm (0.6-1.1) PWd 1.03 cm (0.6-1.1) EF (Teich) 35.00% FS 17.10% EDV (Teich) 197.60 mL TAPSE 1.37 (<1.7) ESV (Teich) 128.40 mL LV Diastology E Decel Time 150 (160-240 msec) E/A Ratio 3.00 MED A' 9.50 cm/s LAT A' 7.80 cm/s Aortic Valve ADELFO Index 0.54 cm2/m2 AoV Peak Ciro. 398.0 (50-130 cm/s) AI PHT 224.00 ms AO Peak GR. 63.70 mmHg AO Mean GR. 39.20 (<5 mmHg) AO VTI 59.6 (18-25 cm) ADELFO (VTI) 1.18 (2.5-4.5 cm2) Mitral Valve MV E Max Ciro. 107.0 (40-130 cm/s) MV A Velocity 36.0 (40-130 cm/s) E/A Ratio 3.00 MV PHT 44.0 ms Pulmonary Valve PV Peak Velocity 109.0 (50-150 cm/s) Tricuspid Valve TR P. Velocity 112.00 cm/s RAP Estimate 10.00 mmHg RVSP 15.10 mmHg Left Ventricle The left ventricle is normal size. Left ventricular systolic function is severely decreased. There is increased LV wall thickness. There is severe global hypokinesis present. The septum is asynchronous. Grade 1 diastolic dysfunction. LVEF is 25%. Right Ventricle The right ventricle is normal size. The right ventricular systolic function is normal. Atria Left atrium is mildly dilated. The right atrium size is normal. There is no Doppler evidence of interatrial shunt. Aortic Valve The aortic valve is moderately thickened. Moderate to severe aortic stenosis. ADELFO by continuity equation is 1.1 cm2. Mean AV gradient 37 mmHg. Max AV gradient 65 mmHg. Peak velocity 3.8 m/s. Mild aortic regurgitation. Mitral Valve Moderate mitral annular calcification. The mitral valve leaflets are mildly thickened. No evidence of mitral valve stenosis. Moderate mitral regurgitation. Tricuspid Valve The tricuspid valve leaflets are thin and pliable. Trace tricuspid regurgitation. There is insufficient TR jet to estimate RVSP. Pulmonic Valve The pulmonary valve is grossly normal in structure. Trace pulmonic regurgitation. Great Vessels The aortic root is not well visualized. IVC is normal in size and collapses >50% with inspiration. Pericardium There is no pericardial effusion. Other Information Study Quality: Technically Difficult Conclusion Technically difficult study due to poor accoustic windows. Severe reduction in LV systolic function (LVEF 25%). Mild LA dilation. Moderate to severe aortic stenosis. ADELFO by continuity equation is 1.1 cm2. Mean AV gradient 37 mmHg. Max AV gradient 65 mmHg. Peak velocity 3.8 m/s. Moderate MR. Mild AI. Electronically signed by : Karo Betts MD 07/14/2024 08:59:40
[2024-07-13 15:44] LABS: ABG Base Excess -25.3 mmol/L (-2.4-2.3); ABG HCO3 4.7 mmhg (22.0-26.0); ABG Oxygen Saturation 99 % (90-100); ABG TCO2 5.3 mmhg (23-27); Oxygen 100% %
[2024-07-13 15:45] LABS: ABG PCO2 16.5 mmhg (35.0-45.0); ABG PH 7.08 mmol/L (7.35-7.45)
[2024-07-13] MEDS: NOREPINEPHRINE BITARTRATE/D5W 8 MG/250 ML PLAST..BAG 37.5 MG IV (15:47)
--- NOTE | 2024-07-13 16:04 | PC.NURSE ---
Rapid response note 1440 Rapid response called 1443 Code called, no compressions were given, just needed more help with patient BP 65/35 ART LINE Pulse 37 O2 82% 1444 Julianne, RT bagging patient 1445 JHill gave verbal order for external pacing 1445 ER doctor, Dr. Heaton at bedside 1448 BP 82/45 ART line Pulse [address] Heaton gave order for bipap 1451 bipap placed, Dr. Heaton gave order for ABG from art line 1452 Dr. Heaton gave order to stop blood transfusion and start vasopressin at 0.04 at this time 1454 Dr. Mosley ordered EKG 1457 Patient diaphoretic, attempting to dry patient to allow stickers to be placed 1459 vasopressin started 1500 EKG completed 1500 BP 94/64 ART line Pulse 119 O2 100 % 1500 ABG results brought to room by Erica Velázquez, respiratory 1501 JHill gave order to give bicarb 1503 Bicarb given 1503 JHill gave order for 100 mg IV push lasix 1504 Dr. Mosley gave order for Bicarb gtt 1506 Lasix in 1507 BP 119/50 from BP cuff Pulse 118 O2 100 1510 JHill gave order to start blood again 1512 Blood started at 25 mL/hr 1515 BP 107/53 ART line Pulse 106 O2 100 1515 JHill ordered another 100 mg IV push lasix 1516 IV lasix in 1517 Bicarb gtt started 1521 Rectal temp 95.1 1522 JHill gave order for more bicarb 1523 Bicarb in 1524 BP 109/64 ART line Pulse 105 O2 100% 1526 chest x-ray done 1530 BP 107/63 Pulse 106 O2 100%
--- NOTE | 2024-07-13 16:28 | P.CONCA_ITS ---
History of Present Illness History of Present Illness Consult date: 07/13/24 Requesting physician: Dior Mosley Chief complaint: Cardiogenic shock Additional Medical History:: 1. CAD A. CABG approximately 2009 B. C with PASQUALE to SVG to OM 2, 06/2024, [facility] 2. Iron deficiency anemia A. Recurrent iron transfusions, followed by hematology 3. PAD, 06/2024, [facility] A. Left common iliac artery with 60-70% proximal stenosis. Right iliac patent, diffuse disease of the external iliac artery. SFA occluded at the ostium. Profunda with significant ostial stenosis B. Right common femoral severely calcified with no obstructive stenosis, right SFA occluded, patent iliofemoral graft History of present illness: Patient is a 64-year-old with a past medical history significant for coronary artery disease status post stents recent heart cath who presents with altered mental status diaphoresis bright red blood per rectum chest pain and shortness of breath. Differential diagnosis includes PE tamponade septic cardiogenic shock heart failure exacerbation acute blood loss anemia secondary to upper or lower GI bleed. Upon arrival patient is toxic appearing diaphoretic pale initial vitals including hypotension 60 over palp tachycardia placed on a nonrebreather. Patient given 2 L of fluid resuscitation with improvement of blood pressure then required initiation of vasopressors. [id number] ultrasound performed with decreased EF. Avoided further fluid resuscitation. Patient's shock likely component of septic and cardiogenic secondary to cool extremities and decreased EF. Arterial line placed in right radial artery for consistent blood pressure monitoring. Patient reached requiring 0.3 mcg/kg/min of Levophed initiated vasopressin and stress dose steroids. Initial workup began to return with elevated initial troponin EKG personally interpreted and significant for ST depressions in lead II otherwise no ST elevations T wave inversions and sinus tachycardia. Further workup revealed elevated lactate in the setting of hypoperfusion. Patient started on broad-spectrum antibiotics for concern of sepsis. Secondary to elevated initial troponin cardiology was consulted for possible need for intervention for concern of NSTEMI complicated by cardiogenic shock. Cardiology recommended no acute intervention needed to go to the [employer]ist at this time. Cardiology also recommended initiation of ionotropic support patient was weaned off of vasopressin initiated on low-dose epinephrine. Patient developed chest pain with higher doses of epinephrine infusion. CT chest abdomen pelvis concerning for bilateral pleural effusions and right lower lobe consolidations. Central line placed. Patient given 80 mg of Protonix due to concern of possible GI bleed based off of history unknown if patient had black or bright red stools as he is not able to answer this question at this time. Patient transfused 1 unit PRBCs secondary to significant coronary artery disease chest pain and hypotension with hemoglobin of 7.5. Patient admitted to medical ICU for further management of septic and cardiogenic shock. The above per Dr. [employer] as noted above. Recent cath report reviewed with Dr. Marcelo with no further recommendations at this time. Will obtain an echocardiogram to confirm decreased ejection fraction. IV Lasix 200 mg given to help with diuresis due to new HFrEF. [facility] Disclaimer: The information contained in this section may have been updated after the patient was seen, as this information can be updated by other users. Social History Smoking Status: Current every day smoker tobacco type: cigarettes packs per day: 1 alcohol intake: never current occupational status: disabled Travel in the last 8 weeks: None Review of Systems Review of Systems Review of systems:: pertinent systems reviewed and negative unless documented below Exam Data for Last 24 hours Vital signs and Labs for Last 24 Hours: Temp Pulse Resp BP Pulse Ox O2 Del Method 97.8 F 113 H 24 94/60 L 94 L Room Air 07/13/24 14:28 07/13/24 14:28 07/13/24 14:28 07/13/24 14:28 07/13/24 14:05 07/13/24 14:28 Laboratory Results - last 24 hr 07/13/24 09:47: WBC 9.1, RBC 3.76 L, Hgb 7.5 L, Hct 26.4 L, MCV 70.2 L, MCH 20.1 L, MCHC 28.6 L, RDW 16.9, Plt Count 344, MPV 8.3, Neut % (Auto) 69.4, Lymph % (Auto) 23.6, [place] % (Auto) 5.5, Eos % (Auto) 0.7, Baso % (Auto) 0.8, Neut # (Auto) 6.3, Lymph # (Auto) 2.2, [place] # (Auto) 0.5, Eos # (Auto) 0.1, Baso # (Auto) 0.1, PT 11.3, INR 1.01, Sodium 134 L, Potassium 3.9, Chloride 106, Carbon Dioxide 13 L, Anion Gap 18.9 H, BUN 19, Creatinine 1.20, Estimated Creat Clear 76, Estimated GFR 61, Est GFR ( Amer) 74, Glucose 250 H, Lactate 8.0 H, Calcium 8.9, Magnesium 1.9, Total Bilirubin 0.6, AST 47, ALT 31, Alkaline Phosphatase 103, Troponin I 2.20 H, NT-Pro-B Natriuret Pep 7640 H, Total Protein 6.1 L, Albumin 3.9, Globulin 2.2, Albumin/Globulin Ratio 1.8 07/13/24 10:04: VBG pH 7.36, VBG pCO2 24.1 L, VBG pO2 156.0 H, VBG HCO3 13.2 L, VBG Total CO2 13.9 L, VBG O2 Saturation 98.8 H, VBG Base Excess -12.4 L, VBG Lactic Acid 7.4 H 07/13/24 11:14: Urine Color Yellow, Urine Appearance Clear, Urine pH 6.0, Ur Specific [place] >= 1.030, Urine Protein 2+, Urine Glucose (UA) 2+, Urine Ketones Trace, Urine Blood Trace-i, Urine Nitrate Negative, Urine Bilirubin 1+ A , Urine Urobilinogen 0.2, Ur Leukocyte Esterase Negative, Urine WBC 5-10, Urine Bacteria Trace, Hyaline Casts 3-5 07/13/24 12:20: Blood Type B Positive, Antibody Screen Negative, Crossmatch (AHG) See Detail 07/13/24 13:30: Troponin I 0.82 H 07/13/24 15:00: ABG pH 6.90 L*, ABG pCO2 20.9 L, ABG pO2 290.7 H, ABG HCO3 4.4 L , ABG Total CO2 5.1 L, ABG O2 Saturation 99, ABG Base Excess -26.0 L 07/13/24 15:28: O2 % 100%, ABG pH 7.08 L*, ABG pCO2 16.5 L, ABG pO2 169.0 H, ABG HCO3 4.7 L, ABG Total CO2 5.3 L, ABG O2 Saturation 99, ABG Base Excess -25.3 L I & O for Last 24 hours: Intake & Output 07/11/24 07/12/24 07/13/24 07/14/24 11:59 11:59 11:59 11:59 Intake Total 65.657 / 65.657 13.500 / 13.500 Balance 65.657 / 65.657 13.500 / 13.500 Weight 190 lb Constitutional Constitutional: severe distress *Routine Respiratory Exam Respiratory: Present decreased breath sounds and crackles *Routine Cardiovascular Exam Cardiovascular: Present RRR *Routine Extremities Exam Extremities: Absent edema *Routine Neurological Exam Neurological: Present alert and oriented X3 Meds Home Medications and Allergies Home Medications ?Medication ?Instructions ?Recorded ?Confirmed ?Type lisinopril 20 mg tablet 20 mg PO DAILY 01/17/21 07/13/24 History metformin 1,000 mg tablet 1,000 mg PO BIDWMEAL 01/17/21 07/13/24 History metoprolol tartrate 25 mg tablet 25 mg PO BID 01/17/21 07/13/24 History simvastatin 40 mg tablet 40 mg PO HS Cholesterol 01/17/21 07/13/24 History cilostazol 100 mg tablet 100 mg PO BID 07/13/24 07/13/24 History clopidogrel 75 mg tablet 75 mg PO DAILY 07/13/24 07/13/24 History montelukast 10 mg tablet 10 mg PO PM 07/13/24 07/13/24 History nicotine 21 mg/24 hr daily 21 mg transdermal DAILY 07/13/24 07/13/24 History transdermal patch New Prescriptions to Start Prescriptions: Allergies Allergy/AdvReac Type Severity Reaction Status Date / Time No Known Drug Allergies Allergy Verified 01/17/21 13:26 Assessment and Plan *Assessment and plan (1) Cardiogenic shock: Status: Acute Category: Medical Code(s): R57.0 - Cardiogenic shock (2) Septic shock: Status: Acute Category: Medical Code(s): A41.9 - Sepsis, unspecified organism; R65.21 - Severe sepsis with septic shock (3) NSTEMI (non-ST elevated myocardial infarction): Status: Acute Category: Medical Code(s): I21.4 - Non-ST elevation (NSTEMI) myocardial infarction (4) Acute blood loss anemia: Status: Acute Category: Medical Code(s): D62 - Acute posthemorrhagic anemia (5) HFrEF (heart failure with reduced ejection fraction): Status: Acute Category: Medical Code(s): I50.20 - Unspecified systolic (congestive) heart failure Plan 1. Cardiogenic Shock/Septic Shock in setting of newly diagnosed HFrEF -Pt on Vasopressin, levophed and epinephrine with SBP of 80-100 mm Hg -Prelim echo shows EF about 35% (recent echo in 06/2024 EF of 55%) -IV Lasix given -Unable to start goal-directed medical therapy due to hypotension 2. NSTEMI -Tmax 2.2, now declining -recent cath reviewed with no plans for repeat LHC at this time 3. Left pneumothorax -chest tube planned 4. Chronic iron deficiency anemia with recent GI blood loss -Blood transfusion in progress 5. Bronchitis noted on CTA of the chest today with no evidence of pulmonary embolism -Chest x-ray shows worsening right base pneumonia Discussed with Dr. Marcelo
[2024-07-13] MEDS: SODIUM BICARBONATE 150 MEQ in 0.9 % SODIUM CHLORIDE 1000ML 1,000 ML 250 MEQ IV ×2 (16:37→23:45)
--- NOTE | 2024-07-13 16:56 | XR_ITS ---
PROCEDURE INFORMATION: Exam: XR Chest Exam date and time: 07/13/2024 5:06 PM Age: 64 years old Clinical indication: Shortness of breath; Additional info: Pneumothorax? Vs skin fold TECHNIQUE: Imaging protocol: Radiologic exam of the chest. Views: 1 view. COMPARISON: CR XR CHEST PORTABLE 07/13/2024 3:21 PM FINDINGS: Tubes, catheters and devices: Right internal jugular central venous catheter tip SVC. Tip in good position. Lungs: New increasing infiltrate within the right medial lung base. Pleural spaces: No pneumothorax. Heart/Mediastinum: The heart size is within normal limits. Bones/joints: Median sternotomy wires are identified. IMPRESSION: New increasing infiltrate within the right medial lung base. Given rapid onset consider aspiration pneumonitis.
--- NOTE | 2024-07-13 18:05 | PC.NURSE ---
While attempting to settle pt in room and complete assessment, and zero art line, pt stated to this RN and other staff in room that he felt like he was going to pass out. upon arrival to unit it was noted that pt hr was in the 110's. during episode, pt hr dropped to the 30-40 range. pt became diaphoretic. pt was placed in [place]. rapid response was called, pt was minimally to unresponsive to staff. pt was noted to be agonally breathing. pt was assisted with breathing via ambubag. see rapid response note for further.
--- NOTE | 2024-07-13 18:14 | EXP.HP ---
History of Present Illness *Admission Date: 07/13/24 *Reason for visit:: low BP *History of present illness: Patient is a 64-year-old male with past medical history of hypertension diabetes mellitus CAD status post stenting 3 weeks ago at [facility] who presents to the hospital due to low blood pressure. Patient is not able to provide much history due to clinical condition, reportedly patient presented to emergency department due to bright red blood per rectum, diaphoresis, chest pain and shortness of breath. At time of my evaluation patient is on Levophed, vasopressin and epinephrine. No reports of fevers. Patient lives by himself, he does not have family except sister who is POA. [facility] Disclaimer: The information contained in this section may have been updated after the patient was seen, as this information can be updated by other users. Social History Smoking Status: Current every day smoker tobacco type: cigarettes packs per day: 1 alcohol intake: never current occupational status: disabled Travel in the last 8 weeks: None Review of Systems Review of Systems Review of systems:: pertinent systems reviewed and negative unless documented below Meds Home Medications and Allergies Home Medications ?Medication ?Instructions ?Recorded ?Confirmed ?Type lisinopril 20 mg tablet 20 mg PO DAILY 01/17/21 07/13/24 History metformin 1,000 mg tablet 1,000 mg PO BIDWMEAL 01/17/21 07/13/24 History metoprolol tartrate 25 mg tablet 25 mg PO BID 01/17/21 07/13/24 History simvastatin 40 mg tablet 40 mg PO HS Cholesterol 01/17/21 07/13/24 History cilostazol 100 mg tablet 100 mg PO BID 07/13/24 07/13/24 History clopidogrel 75 mg tablet 75 mg PO DAILY 07/13/24 07/13/24 History montelukast 10 mg tablet 10 mg PO PM 07/13/24 07/13/24 History nicotine 21 mg/24 hr daily 21 mg transdermal DAILY 07/13/24 07/13/24 History transdermal patch New Prescriptions to Start Prescriptions: Allergies Allergy/AdvReac Type Severity Reaction Status Date / Time No Known Drug Allergies Allergy Verified 01/17/21 13:26 Exam Data for Last 24 hours Vital signs and Labs for Last 24 Hours: Temp Pulse Resp BP Pulse Ox O2 Del Method 95.0 F L 110 H 24 94/60 L 94 L Room Air 08/12/24 16:58 07/13/24 16:00 07/13/24 14:28 07/13/24 14:28 07/13/24 14:05 07/13/24 14:28 Laboratory Results - last 24 hr 07/13/24 09:47: WBC 9.1, RBC 3.76 L, Hgb 7.5 L, Hct 26.4 L, MCV 70.2 L, MCH 20.1 L, MCHC 28.6 L, RDW 16.9, Plt Count 344, MPV 8.3, Neut % (Auto) 69.4, Lymph % (Auto) 23.6, [place] % (Auto) 5.5, Eos % (Auto) 0.7, Baso % (Auto) 0.8, Neut # (Auto) 6.3, Lymph # (Auto) 2.2, [place] # (Auto) 0.5, Eos # (Auto) 0.1, Baso # (Auto) 0.1, PT 11.3, INR 1.01, Sodium 134 L, Potassium 3.9, Chloride 106, Carbon Dioxide 13 L, Anion Gap 18.9 H, BUN 19, Creatinine 1.20, Estimated Creat Clear 76, Estimated GFR 61, Est GFR ( Amer) 74, Glucose 250 H, Lactate 8.0 H, Calcium 8.9, Magnesium 1.9, Total Bilirubin 0.6, AST 47, ALT 31, Alkaline Phosphatase 103, Troponin I 2.20 H, NT-Pro-B Natriuret Pep 7640 H, Total Protein 6.1 L, Albumin 3.9, Globulin 2.2, Albumin/Globulin Ratio 1.8 07/13/24 10:04: VBG pH 7.36, VBG pCO2 24.1 L, VBG pO2 156.0 H, VBG HCO3 13.2 L, VBG Total CO2 13.9 L, VBG O2 Saturation 98.8 H, VBG Base Excess -12.4 L, VBG Lactic Acid 7.4 H 07/13/24 11:14: Urine Color Yellow, Urine Appearance Clear, Urine pH 6.0, Ur Specific [place] >= 1.030, Urine Protein 2+, Urine Glucose (UA) 2+, Urine Ketones Trace, Urine Blood Trace-i, Urine Nitrate Negative, Urine Bilirubin 1+ A, Urine Urobilinogen 0.2, Ur Leukocyte Esterase Negative, Urine WBC 5-10, Urine Bacteria Trace, Hyaline Casts 3-5 07/13/24 12:20: Blood Type B Positive, Antibody Screen Negative, Crossmatch (AHG) See Detail 07/13/24 13:30: Troponin I 0.82 H 07/13/24 15:00: ABG pH 6.90 L*, ABG pCO2 20.9 L, ABG pO2 290.7 H, ABG HCO3 4.4 L, ABG Total CO2 5.1 L, ABG O2 Saturation 99, ABG Base Excess -26.0 L 07/13/24 15:28: O2 % 100%, ABG pH 7.08 L*, ABG pCO2 16.5 L, ABG pO2 169.0 H, ABG HCO3 4.7 L, ABG Total CO2 5.3 L, ABG O2 Saturation 99, ABG Base Excess -25.3 L I & O for Last 24 hours: Intake & Output 07/10/24 07/11/24 07/12/24 07/13/24 23:59 23:59 23:59 23:59 Intake Total 497.957 / 497.957 Output Total 1100 / 1100 Balance -602.043 / -602.043 Weight 86.183 kg Constitutional Constitutional: no acute distress *Routine HEENT Exam Head: Present normocephalic Eye: Present EOMI and PERRL ENT: Present mucous membranes moist *Routine Neck Exam Neck: Present supple; Absent lymphadenopathy *Routine Respiratory Exam Respiratory: Present CTA bilaterally *Routine Cardiovascular Exam Cardiovascular: Present RRR *Routine Abdominal Exam Abdominal: Present soft and normoactive bowel sounds; Absent tenderness *Routine Rectal Exam Rectal:: deferred *Routine Genitalia Exam Genitalia:: deferred *Routine Extremities Exam Extremities: Absent cyanosis, clubbing or edema *Routine Skin Exam Skin: Present warm; Absent rash *Routine Neurological Exam Neurological: Present alert Comments: confused Assessment and Plan *Assessment and plan (1) HFrEF (heart failure with reduced ejection fraction): Status: Acute Category: Medical Code(s): I50.20 - Unspecified systolic (congestive) heart failure (2) Cardiogenic shock: Status: Acute Category: Medical Code(s): R57.0 - Cardiogenic shock (3) Septic shock: Status: Acute Category: Medical Code(s): A41.9 - Sepsis, unspecified organism; R65.21 - Severe sepsis with septic shock (4) NSTEMI (non-ST elevated myocardial infarction): Status: Acute Category: Medical Code(s): I21.4 - Non-ST elevation (NSTEMI) myocardial infarction (5) Acute blood loss anemia: Status: Acute Category: Medical Code(s): D62 - Acute posthemorrhagic anemia (6) GI bleed: Status: Acute Qualifiers: GI bleed type/associated pathology: unspecified gastrointestinal hemorrhage type Qualified Code(s): K92.2 - Gastrointestinal hemorrhage, unspecified Category: Medical Code(s): K92.2 - Gastrointestinal hemorrhage, unspecified Plan Patient is a 64-year-old male with past medical history of hypertension diabetes mellitus CAD status post stenting 3 weeks ago at [facility] who presents to the hospital due to low blood pressure. Patient is not able to provide much history due to clinical condition, reportedly patient presented to emergency department due to bright red blood per rectum, diaphoresis, chest pain and shortness of breath. At time of my evaluation patient is on Levophed, vasopressin and epinephrine. No reports of fevers. Patient lives by himself, he does not have family except sister who is POA. Assessment and plan Septic shock likely secondary to pneumonia Cardiogenic shock likely ACS Anemia of acute blood loss, chronic iron deficiency anemia Metabolic aciddosis lactic acidosis Patient is started on vasopressin, Levophed, epinephrine Start vancomycin, Zosyn Check blood cultures Check echocardiogram Consult cardiology Consult pulmonary Stool occult ordered Start empirical Protonix Monitor hemoglobin Check iron levels, per family patient receives iron infusions on a regular basis monitor ABG, lactic acid Acute hypoxic respiratory failure due to pulmonary edema Pulmonary vascular congestion,, pneumonia Status post 200 mg IV Lasix on the floor per cardiology instructions Continue oxygen support, wean as tolerated Continue IV antibiotics Chronic iron deficiency Check iron studies, B12, folic acid Replace iron with IV iron as needed DVT prophylaxis-heparin
[2024-07-13] MEDS: EPINEPHrine 5 MG in 0.9 % SODIUM CHLORIDE 250 ML 36.72 MG IV (19:24)
[2024-07-13 19:27] LABS: Iron 77 ug/dL (49-181)
[2024-07-13 19:36] LABS: Total Iron Binding Capacity 478 ug/dL (261-462)
[2024-07-13 20:05] LABS: Hematocrit 30.5 % (42.0-52.0); Hemoglobin 8.7 g/dL (14.1-18.0)
[2024-07-13 20:05] LABS: ABG Base Excess -19.9 mmol/L (-2.4-2.3); ABG HCO3 6.6 mmhg (22.0-26.0); ABG Oxygen Saturation 96 % (90-100); ABG PO2 99.4 mmhg (80-100)
[2024-07-13 20:06] LABS: Allen's Test Non Applicable; Oxygen 3L NC %; Source ART LINE
[2024-07-13 20:07] LABS: ABG PCO2 13.8 mmhg (35.0-45.0)
[2024-07-13] MEDS: NOREPINEPHRINE BITARTRATE/D5W 8 MG/250 ML PLAST..BAG 56.25 MG IV (20:31)
[2024-07-13] MEDS: humaLOG 100 UNITS/ML 10ML VIAL (SSI) SQ (20:43)
[2024-07-13] MEDS: PANTOPRAZOLE 40MG VIAL 40 MG IV (20:43)
[2024-07-13] MEDS: SODIUM BICARB 8.4% 50ML SYRINGE (CRASH CART) 100 MEQ IV (20:49)
[2024-07-13] MEDS: PIPERACILLIN/TAZO 3.375 GM in 0.9 % SODIUM CHLORIDE 50 ML IV (21:00)
[2024-07-13] MEDS: ACETAMINOPHEN 325MG TAB 650 MG PO (21:35)
--- NOTE | 2024-07-13 23:00 | PC.NURSE ---
TRN at bedside due to art line reading incorrectly. Attempted to troubleshoot a line but line was dampened and unable to fruit or nut picker accurate BP read that correlated with manual on opposite arm. TRN spoke with SIM Santo and received verbal orders to disconnect A line at this time, obtaining automatic BP reads with cuff q15 minutes on left arm. SIM Santo informed that when ER physician is able to come to patient bedside, to ask for new art line placement in left wrist. TRN VU. Phone call placed to ED and spoke with LESLY Mann to which she reports that area is busy at this time, but will inform physician, and if they are able they will come to floor to place art line.
[2024-07-13 23:14] LABS: Hemoglobin 8.4 g/dL (14.1-18.0)
[2024-07-13 23:14] LABS: ABG Base Excess -18.2 mmol/L (-2.4-2.3); ABG HCO3 7.1 mmhg (22.0-26.0); ABG Oxygen Saturation 96 % (90-100); ABG PH 7.37 mmol/L (7.35-7.45); ABG PO2 91.2 mmhg (80-100); ABG TCO2 7.5 mmhg (23-27)
[2024-07-13 23:20] LABS: Allen's Test Non Applicable; Oxygen 3LNC %; Source A-Line
[2024-07-13 23:21] LABS: ABG PCO2 12.5 mmhg (35.0-45.0)
[2024-07-13 23:28] LABS: Hematocrit 29.2 % (42.0-52.0)
[2024-07-14] VITALS (26 sets, daily range): BP systolic 00–107; BP diastolic 00–79; PULSE 0–121; RESP 0–33; TEMP 35.9–37; O2SAT 0–100; BMI 23.6
--- NOTE | 2024-07-14 00:10 | PC.NURSE ---
Patient with bowel movement at this time. TRN noticed patient kathryn down with heart rates dropping into the 60's. While at bedside patient is diaphoretic and appears SOA. Pt maintaining oxygenation at 38% at 2LNC. When asked if patient is bearing down while trying to pass stool, patient reports that he is. Informed patient to try and not bear down causing vagaling response. Patient VU. Allowed patient to recover, and vital signs to stabilize before attempting pericare. After patient was stabilized full bed change, and fredrick care perfomed but this RN and JIMMY Roberts. Patient tolerated will without further issue. Patient resting comfortably in supine position with head of bed raised to 20 degree per patient request. Call light placed in left hand and informed of use with VU.
[2024-07-14] MEDS: NOREPINEPHRINE BITARTRATE/D5W 8 MG/250 ML PLAST..BAG 56.25 MG IV ×3 (01:23→09:56)
[2024-07-14] MEDS: PIPERACILLIN/TAZO 3.375 GM in 0.9 % SODIUM CHLORIDE 50 ML IV (02:34)
[2024-07-14] MEDS: humaLOG 100 UNITS/ML 10ML VIAL (SSI) SQ ×2 (02:37→09:18)
[2024-07-14 02:50] LABS: POC Glucose,Bedside 350 (70-110)
[2024-07-14 02:50] LABS: POC Glucose,Bedside 352 (70-110)
[2024-07-14] MEDS: LIDOCAINE 5% TRANSDERMAL PATCH 1 EACH TP (02:54)
--- NOTE | 2024-07-14 03:06 | ECG_ITS ---
APPROVED REPORT Exam: Resting ECG HR:104 bpm ECG Measurements Heart Rate 104 AXES ND 202 P 79 QRSd 116 QRS 246 QT 344 T 70 QTc 405 Conclusion SINUS TACHYCARDIA with first-degree AV block RIGHT AXIS DEVIATION [QRS AXIS > 100] S1-S2-S3 PATTERN, CONSISTENT WITH PULMONARY DISEASE, RVH, OR NORMAL VARIANT RIGHT BUNDLE BRANCH BLOCK ABNORMAL ECG UNCONFIRMED REPORT Electronically signed by : James Chong MD 07/15/2024 08:08:35
--- NOTE | 2024-07-14 03:17 | PC.NURSE ---
FSBS obtained. FSBS 317.ER MD at bedside requested per [employer] for bedside cardiac ultrasound.
--- NOTE | 2024-07-14 03:44 | [facility].PROCNOTE ---
[facility] Procedure Note Date: 07/14/24 Time: 03:30 Procedure Note:: Procedure: Left radial arterial line placement Indication: Hypotension Description: A short 20-gauge left radial arterial line was placed under direct ultrasound guidance by myself at bedside. 1 attempt was required. Procedure was successful. Sterile technique was utilized. Ultrasound images were saved to the patient's permanent record. No complications.
[2024-07-14 04:10] LABS: ABG Base Excess -18.7 mmol/L (-2.4-2.3); ABG HCO3 6.9 mmhg (22.0-26.0); ABG Oxygen Saturation 94 % (90-100); ABG PH 7.35 mmol/L (7.35-7.45); ABG PO2 85.3 mmhg (80-100); ABG TCO2 7.3 mmhg (23-27)
[2024-07-14 04:11] LABS: ABG PCO2 12.7 mmhg (35.0-45.0); Allen's Test Non Applicable; Oxygen 3L NC %; Source Left Radial
[2024-07-14 04:47] LABS: Basophils % 0.1 % (0.1-2.0); Hemoglobin 8.3 g/dL (14.1-18.0); Lymphocytes # 0.9 K/mm3 (0.7-4.5); Lymphocytes % 4.8 % (10-50); Mean Corpuscular HGB Conc 28.5 g/dL (31.8-35.4); Mean Corpuscular Hemoglobin 20.9 pg (27.0-31.2); Mean Corpuscular Volume 73.3 fl (80-94); Mean Platelet Volume 9.8 fl (7.4-10.4); Monocytes % 5.1 % (1.7-9.3); Neutrophils # 16.8 K/mm3 (1.8-7.8); Neutrophils % 89.9 % (37.0-80.0); Platelet Count 329 K/mm3 (142-424); Red Blood Count 3.98 M/mm3 (4.60-6.20); White Blood Count 18.6 K/mm3 (4.8-10.8)
[2024-07-14 04:49] LABS: MANUAL DIFFERENTIAL MANUAL DIFFERENTIAL (MANUAL DIFF)
[2024-07-14] MEDS: VASOPRESSIN 40 UNIT in 0.9 % SODIUM CHLORIDE 100 ML 6.12 UNIT IV (04:50)
[2024-07-14 04:51] LABS: Albumin Level 3.6 g/dl (3.5-5.0); Chloride 104 mmol/L (98-107)
[2024-07-14] MEDS: EPINEPHrine 5 MG in 0.9 % SODIUM CHLORIDE 250 ML 36.72 MG IV (04:51)
[2024-07-14 04:52] LABS: Potassium 4.3 mmoL/L (3.5-5.1); Sodium 140 mmol/L (136-145)
[2024-07-14 04:53] LABS: Hematocrit 28.3 % (42.0-52.0)
[2024-07-14 04:54] LABS: Blood Urea Nitrogen 22 mg/dl (9-20); Creatinine Clearance Estimated 49 mL/min (50-200); Estimated Glomerular Filt Rate 38 ml/min (>60); GFR (African American) 46 ML/MIN (>60)
[2024-07-14 04:55] LABS: Alkaline Phosphatase 136 U/L (38-126); Bilirubin,Total 1.7 mg/dl (0.2-1.3); Calcium 7.4 mg/dl (8.4-10.2); Globulin 1.8 g/dL (1.3-3.2); Glucose 282 mg/dl (74-100); Magnesium 1.8 mg/dl (1.6-2.3); Total Protein,Serum 5.4 g/dl (6.3-8.2)
--- NOTE | 2024-07-14 05:04 | ECG_ITS ---
APPROVED REPORT Exam: Resting ECG HR:74 bpm ECG Measurements Heart Rate 74 AXES QRSd 142 QRS 127 QT 385 T -44 QTc 412 Conclusion Third-degree AV block Junctional beats with intraventricular conduction delay CRITICAL TEST RESULT UNCONFIRMED REPORT Electronically signed by : James Chong MD 07/15/2024 08:08:08
--- NOTE | 2024-07-14 05:05 | PC.NURSE ---
Rhythm change noted on monitor at nurses station. TRN at bedside. Patient kathryn down to 60's, and became hypotensive. Patient stated that he feels one of his spells coming on again. TRN obtained EKg with help of LESLY Shepherd and charge nurse LESLY Gibbs at bedside. SIM Santo notified and at bedside. House notified of change in patient status. Crash cart placed in room, and patient placed on zoll pads.
--- NOTE | 2024-07-14 05:09 | XR_ITS ---
PROCEDURE INFORMATION: Exam: XR Chest Exam date and time: 07/14/2024 5:29 AM Age: 64 years old Clinical indication: Shortness of breath; Additional info: Shortness of air TECHNIQUE: Imaging protocol: Radiologic exam of the chest. Views: 1 view. COMPARISON: CR XR CHEST PORTABLE 07/13/2024 5:06 PM FINDINGS: Tubes, catheters and devices: Right-sided internal jugular central venous line with tip at the distal superior vena cava. Lungs: Increasing vascular prominence. Right middle lobe and right lower lobe patchy/granular opacities which silhouette the right heart border. Increasing retrocardiac opacities. Pleural spaces: Unremarkable. No pleural effusion. No pneumothorax. Heart/Mediastinum: Postprocedural changes of the cardiomediastinal silhouette. Cardiomegaly, stable. Vasculature: Cephalization of vasculature. Vascular indistinctness. Bones/joints: Status post sternotomy. Diffuse degenerative change of the visualized osseous structures. Soft tissues: Curvilinear thin lucency projects over the right hilum and extends over midline, likely artifactual/skin fold. IMPRESSION: 1. Findings concerning for volume overload, although multifocal infection can appear similarly. Correlate clinically. 2. Remainder of the examination as detailed above.
[2024-07-14 05:21] LABS: Anion Gap 35.3 mEq/L (5-15)
[2024-07-14 05:23] LABS: Carbon Dioxide < 5 mmol/L (22.0-30.0)
[2024-07-14 05:24] LABS: Lymphocytes % 9 % (10-50); Monocytes % 1 % (2-9); Neutrophils % 89 % (42-76); Nucleated Red Blood Cells 1; Total Cells Counted 100
--- NOTE | 2024-07-14 05:25 | PC.NURSE ---
Family contacted. TRN spoke with Kathy, patient sister and informed of patient condition. Sister states that she will be at facility as soon as possible.
[2024-07-14 05:26] LABS: Acanthocytes 2+; RBC Morphology Normal
[2024-07-14 05:27] LABS: Anisocytosis 1+; Ovalocytes 1+; Polychromasia 1+
--- NOTE | 2024-07-14 05:30 | PC.NURSE ---
Dr. Marcelo contacted and informed of patient condition and rhythm change. New orders for intubation. MD at bedside informed of cardiology orders, and requests to speak with Dr. Marcelo. After conversation between both physicians, new orders for bumex, and chlorathiazide at this time. SEE MAR. Patient not to be intubated at this time due to instability.
[2024-07-14 05:37] LABS: Alanine Aminotransferase 5322 U/L (12-78); Aspartate Amino Transferase 4554 U/L (17-59)
[2024-07-14] MEDS: BUMETANIDE 1MG/4ML VIAL 4 MG IV (05:45)
[2024-07-14] MEDS: CHLOROTHIAZIDE SODIUM 1,000 MG in 0.9 % SODIUM CHLORIDE 50 ML 100 MG IV (06:00)
--- NOTE | 2024-07-14 06:09 | P.PN_ITS ---
Acute Rapid Response Note Subjective Date Responded: 07/14/24 Time Responded: 05:05 Provider Note: called to bedside for patient evaluation of patient changing conditions. patient seen and evaluated bedside. found to be tachypnic RR in the 30's. STAT Xray was obtained and preliminary reading showed worsening pulmonary edema. 40mg lasix STAT given. Cardiology was paged. Added another 4mg on Bumex along with the 1gr of Chlorothiazide. patient responded fairly to diuresis. improved breathing. Objective Findings: Vital Signs - Last 4 Hours Temperature 97.6 F 07/14/24 00:00 Temperature Source Axillary 07/14/24 00:00 Pulse Rate 110 H 07/14/24 04:00 Respiratory Rate 28 H 07/14/24 02:00 TAR Vitals Timing 1 Hour Post Infusion 07/13/24 18:10 Blood Pressure 100/79 L 07/14/24 02:00 Blood Pressure Mean 86 07/14/24 02:00 Blood Pressure Source Automatic Cuff 07/14/24 02:00 Blood Pressure Position Supine 07/14/24 02:00 02 Sat by Pulse Oximetry 100 07/14/24 02:00 Oxygen Delivery Method Nasal Cannula 07/14/24 02:00 Oxygen Flow Rate (LPM) 2 07/14/24 02:00 Lab Results for Past 12 Hours 07/14/24 04:35: WBC 18.6 H D, RBC 3.98 L, Hgb 8.3 L, Hct 28.3 L, MCV 73.3 L, MCH 20.9 L, MCHC 28.5 L, RDW 18.0 H, Plt Count 329, MPV 9.8, Neut % (Auto) 89.9 H, Lymph % (Auto) 4.8 L, [place] % (Auto) 5.1, Eos % (Auto) 0.0 L, Baso % (Auto) 0.1, Neut # (Auto) 16.8 H, Lymph # (Auto) 0.9, [place] # (Auto) 1.0, Eos # (Auto) 0.0, Baso # (Auto) 0.0, Total Counted 100, Neutrophils % (Manual) 89 H, Lymphocytes % (Manual) 9 L, Monocytes % (Manual) 1 L, Metamyelocytes % 1.0, Nucleated RBCs 1, Platelet Estimate Not Reportable, RBC Morphology Normal, Polychromasia 1+, Anisocytosis 1+, Ovalocytes 1+, Acanthocytes (Spur) 2+, Sodium 140, Potassium 4.3, Chloride 104, Carbon Dioxide < 5 L* D, Anion Gap 35.3 H, BUN 22 H, Creatinine 1.80 H D, Estimated Creat Clear 49, Estimated GFR 38 L, Est GFR ( Amer) 46 L D, Glucose 282 H, Calcium 7.4 L, Magnesium 1.8, Total Bilirubin 1.7 H, AST 4554 H* D, ALT 5322 H*, Alkaline Phosphatase 136 H, Total Protein 5.4 L, Albumin 3.6, Globulin 1.8, Albumin/Globulin Ratio 2.0 H 07/14/24 04:00: Specimen Source Left radial, O2 % 3l nc, ABG pH 7.35, ABG pCO2 12.7 L, ABG pO2 85.3, ABG HCO3 6.9 L, ABG Total CO2 7.3 L, ABG O2 Saturation 94, ABG Base Excess -18.7 L, Joe Test Non applicable 07/14/24 02:36: POC Glucose 352 H* 07/13/24 23:05: Hgb 8.4 L, Hct 29.2 L 07/13/24 22:34: Specimen Source A-line, O2 % 3lnc, ABG pH 7.37, ABG pCO2 12.5 L, ABG pO2 91.2, ABG HCO3 7.1 L, ABG Total CO2 7.5 L, ABG O2 Saturation 96, ABG Base Excess -18.2 L, Joe Test Non applicable 07/13/24 20:30: POC Glucose 350 H* 07/13/24 19:41: Hgb 8.7 L D, Hct 30.5 L 07/13/24 19:02: Specimen Source Art line, O2 % 3l nc, ABG pH 7.30 L, ABG pCO2 13.8 L, ABG pO2 99.4, ABG HCO3 6.6 L, ABG Total CO2 7.0 L, ABG O2 Saturation 96, ABG Base Excess -19.9 L, Oje Test Non applicable 07/13/24 18:45: Iron 77, TIBC 478 H, Iron Saturation 16.52202, Troponin I 59.50 H, Procalcitonin 07/13/24 12:20: Crossmatch (AHG) See Detail My Orders Category Date Time Status Chest XR -- portable [XR chest portable] Stat Exams 07/14/24 05:09 Taken CMP [Comprehensive Metabolic Panel] Stat Lab 07/14/24 04:35 Completed Hemoglobin and Hematocrit Q6 Lab 07/13/24 23:05 Completed Hemoglobin and Hematocrit Q6 Lab 07/14/24 11:00 Ordered 0.9 % Sodium Chloride 1000ML [Sod Chlor 0.9% 1000mL Bag Med 07/13/24 23:26 Discontinued ] 1,000 ml Sodium Bicarbonate [Sodium Bicarbonate 8.4% 50mL Vial] 150 meq IV 250 mls/hr 0.9 % Sodium Chloride 1000ML [Sod Chlor 0.9% 1000mL Bag Med 07/14/24 04:30 Ordered ] 500 ml IV 999 mls/hr Bumetanide [Bumex 1mg/4mL Vial] Med 07/14/24 05:38 Once 4 mg IV ONCE ONE Chlorothiazide Sodium [Diuril 500mg vial] 1,000 mg Med 07/14/24 05:41 Ordered 0.9 % Sodium Chloride [Sod Chlor 0.9% 50mL bag] 50 ml IV ONCE Lidocaine [Lidoderm 5% transdermal patch] Med 07/14/24 03:00 Discontinued 1 each TP ONCE ONE ABG [Arterial Blood Gas] Timed RT 07/13/24 22:34 Completed Arterial Blood Gas Routine RT 07/14/24 04:00 Completed Radiology Findings #1: Xray Reviewed: Chest Image Reviewed: Yes I reviewed the patient's radiology image w/the ED provider ED XR Results: Abnormal (right worsened pulmonary edema ) ECG Data Tracing #1: ECG initial impression date: 07/14/24 ECG initial impression time: 05:05 Arrhythmias present: sinus tach and v tach Ischemic changes: non-specific ST-T wave changes and t wave inversions Conduction abnormalities present: 1st degree AV block EKG compared to prior tracings: this ECG reveals significant changes Rapid Response Exam General General appearance: alert and in distress Head Head exam: atraumatic and normocephalic Eye Eye exam: Present normal appearance and PERRL ENT ENT exam: Present normal exam Neck Neck exam: Present normal inspection and full ROM Chest Chest inspection: Present normal inspection and symmetric chest wall rise Respiratory Respiratory exam: Present respiratory distress and other Expanded Respiratory Exam Location: Right: rales Cardiovascular Cardiovascular exam: Present tachycardia Abdominal Exam Abdominal exam: Present soft and distention exam: Present normal inspection Extremities Exam Extremities exam: Present normal inspection RR Procedures/Assess/Plan (1) HFrEF (heart failure with reduced ejection fraction): Status: Acute (2) Cardiogenic shock: Status: Acute (3) Septic shock: Status: Acute (4) NSTEMI (non-ST elevated myocardial infarction): Status: Acute (5) Acute blood loss anemia: Status: Acute (6) GI bleed: Status: Acute Qualifiers: GI bleed type/associated pathology: unspecified gastrointestinal hemorrh age type Qualified Code(s): K92.2 - Gastrointestinal hemorrhage, unspecified (7) Acute pulmonary edema: Status: Acute Assessment and plan all Dx Assessment and Plan for all problems:: Patient continue to be critically ill. ABG showed normalized pH, still con acidosis high anion gap. Continue vasopressures. oxygen support. CBC and CMP obtained. diuresis with 4mg of bumex 40on lasix and 1gr of chlorothiazide per cardiology. breathing improved. patient aerating well. blood pressure and HR fluctuating. likely to heart block . bedside ECHO showed worsened EF. estimated on 10-15%. Continue monitoring
--- NOTE | 2024-07-14 06:44 | PC.NURSE ---
Patient appears to be sleeping/resting in bed at this time with eyes shut. Family at bedside. Updated sister on current patient condition with ANGIOGRAPHY NURSE at bedside. Family tearful yet understanding. Questioned by family answered by TRN and ANGIOGRAPHY NURSE. No further needs at this time.
[2024-07-14 06:57] LABS: POC Glucose,Bedside 317 (70-110)
--- NOTE | 2024-07-14 08:06 | P.CONPHA_ITS ---
Pharmacy Consult Date: 07/14/24 Time: 08:06 Referring provider: DR. FALCON Reason for Consult:: VANCOMYCIN DOSING Allergies Allergy/AdvReac Type Severity Reaction Status Date / Time No Known Drug Allergies Allergy Verified 01/17/21 13:26 Home Medications ?Medication ?Instructions ?Recorded ?Confirmed ?Type lisinopril 20 mg tablet 20 mg PO DAILY 01/17/21 07/13/24 History metformin 1,000 mg tablet 1,000 mg PO BIDWMEAL 01/17/21 07/13/24 History metoprolol tartrate 25 mg tablet 25 mg PO BID 01/17/21 07/13/24 History simvastatin 40 mg tablet 40 mg PO HS Cholesterol 01/17/21 07/13/24 History cilostazol 100 mg tablet 100 mg PO BID 07/13/24 07/13/24 History clopidogrel 75 mg tablet 75 mg PO DAILY 07/13/24 07/13/24 History montelukast 10 mg tablet 10 mg PO PM 07/13/24 07/13/24 History nicotine 21 mg/24 hr daily 21 mg transdermal DAILY 07/13/24 07/13/24 History transdermal patch New Prescriptions to Start Prescriptions: Height: 1.88 m Weight: 83.716 kg Laboratory Results:: Laboratory Results - last 24 hr 07/13/24 09:47: WBC 9.1, RBC 3.76 L, Hgb 7.5 L, Hct 26.4 L, MCV 70.2 L, MCH 20.1 L, MCHC 28.6 L, RDW 16.9, Plt Count 344, MPV 8.3, Neut % (Auto) 69.4, Lymph % (Auto) 23.6, [place] % (Auto) 5.5, Eos % (Auto) 0.7, Baso % (Auto) 0.8, Neut # (Auto) 6.3, Lymph # (Auto) 2.2, [place] # (Auto) 0.5, Eos # (Auto) 0.1, Baso # (Auto) 0.1, PT 11.3, INR 1.01, Sodium 134 L, Potassium 3.9, Chloride 106, Carbon Dioxide 13 L, Anion Gap 18.9 H, BUN 19, Creatinine 1.20, Estimated Creat Clear 76, Estimated GFR 61, Est GFR ( Amer) 74, Glucose 250 H, Lactate 8.0 H, Calcium 8.9, Magnesium 1.9, Total Bilirubin 0.6, AST 47, ALT 31, Alkaline Phosphatase 103, Troponin I 2.20 H, NT-Pro-B Natriuret Pep 7640 H, Total Protein 6.1 L, Albumin 3.9, Globulin 2.2, Albumin/Globulin Ratio 1.8 07/13/24 10:04: VBG pH 7.36, VBG pCO2 24.1 L, VBG pO2 156.0 H, VBG HCO3 13.2 L, VBG Total CO2 13.9 L, VBG O2 Saturation 98.8 H, VBG Base Excess -12.4 L, VBG Lactic Acid 7.4 H 07/13/24 11:14: Urine Color Yellow, Urine Appearance Clear, Urine pH 6.0, Ur Specific [place] >= 1.030, Urine Protein 2+, Urine Glucose (UA) 2+, Urine Ketones Trace, Urine Blood Trace-i, Urine Nitrate Negative, Urine Bilirubin 1+ A , Urine Urobilinogen 0.2, Ur Leukocyte Esterase Negative, Urine WBC 5-10, Urine Bacteria Trace, Hyaline Casts 3-5 07/13/24 12:20: Blood Type B Positive, Antibody Screen Negative, Crossmatch (AHG) See Detail 07/13/24 13:30: Troponin I 0.82 H 07/13/24 15:00: ABG pH 6.90 L*, ABG pCO2 20.9 L, ABG pO2 290.7 H, ABG HCO3 4.4 L , ABG Total CO2 5.1 L, ABG O2 Saturation 99, ABG Base Excess -26.0 L 07/13/24 15:28: O2 % 100%, ABG pH 7.08 L*, ABG pCO2 16.5 L, ABG pO2 169.0 H, ABG HCO3 4.7 L, ABG Total CO2 5.3 L, ABG O2 Saturation 99, ABG Base Excess -25.3 L 07/13/24 18:45: Iron 77, TIBC 478 H, Iron Saturation 16.06022, Troponin I 59.50 H, Procalcitonin 07/13/24 19:02: Specimen Source Art line, O2 % 3l nc, ABG pH 7.30 L, ABG pCO2 13.8 L, ABG pO2 99.4, ABG HCO3 6.6 L, ABG Total CO2 7.0 L, ABG O2 Saturation 96, ABG Base Excess -19.9 L, Joe Test Non applicable 07/13/24 19:41: Hgb 8.7 L D, Hct 30.5 L 07/13/24 20:30: POC Glucose 350 H* 07/13/24 22:34: Specimen Source A-line, O2 % 3lnc, ABG pH 7.37, ABG pCO2 12.5 L, ABG pO2 91.2, ABG HCO3 7.1 L, ABG Total CO2 7.5 L, ABG O2 Saturation 96, ABG Base Excess -18.2 L, Joe Test Non applicable 07/13/24 23:05: Hgb 8.4 L, Hct 29.2 L 07/14/24 02:36: POC Glucose 352 H* 07/14/24 04:00: Specimen Source Left radial, O2 % 3l nc, ABG pH 7.35, ABG pCO2 12.7 L, ABG pO2 85.3, ABG HCO3 6.9 L, ABG Total CO2 7.3 L, ABG O2 Saturation 94, ABG Base Excess -18.7 L, Joe Test Non applicable 07/14/24 04:35: WBC 18.6 H D, RBC 3.98 L, Hgb 8.3 L, Hct 28.3 L, MCV 73.3 L, MCH 20.9 L, MCHC 28.5 L, RDW 18.0 H, Plt Count 329, MPV 9.8, Neut % (Auto) 89.9 H, Lymph % (Auto) 4.8 L, [place] % (Auto) 5.1, Eos % (Auto) 0.0 L, Baso % (Auto) 0.1, Neut # (Auto) 16.8 H, Lymph # (Auto) 0.9, [place] # (Auto) 1.0, Eos # (Auto) 0.0, Baso # (Auto) 0.0, Total Counted 100, Neutrophils % (Manual) 89 H, Lymphocytes % (Manual) 9 L, Monocytes % (Manual) 1 L, Metamyelocytes % 1.0, Nucleated RBCs 1, Platelet Estimate Not Reportable, RBC Morphology Normal, Polychromasia 1+, Anisocytosis 1+, Ovalocytes 1+, Acanthocytes (Spur) 2+, Sodium 140, Potassium 4.3, Chloride 104, Carbon Dioxide < 5 L* D, Anion Gap 35.3 H, BUN 22 H, Creatinine 1.80 H D, Estimated Creat Clear 49, Estimated GFR 38 L, Est GFR ( Amer) 46 L D, Glucose 282 H, Calcium 7.4 L, Magnesium 1.8, Total Bilirubin 1.7 H, AST 4554 H* D, ALT 5322 H*, Alkaline Phosphatase 136 H, Total Protein 5.4 L, Albumin 3.6, Globulin 1.8, Albumin/Globulin Ratio 2.0 H 07/14/24 05:18: POC Glucose 317 H* Assessment and Plan Assessment and plan all Dx Assessment and Plan for all problems:: Pharmacokinetic dosing service Objective: Patient: Floor: Age: 64 yo Serum creatinine: 1.8 mg/dL Height: 74.0 Inches Weight (kg): 83.7 Assessment: IBW (kg): 82.20 Dosing wt(kg): 83.7 Estimated Creatinine clearance (ml/min): 48.2 CRCL method: Cockcroft and Gault using ibw(default). Drug selected: Vancomycin Loading dose (mg): 0 Vd (liters): 67.0 (factor used: 0.8 L/kg) Jamie (hr-1): 0.044 Half life (hrs): 15.75 Recommended dose: 1500 mg Interval: 24 hrs Infusion time (hrs): 2.0 Predicted peak (mcg/mL): 32.9 Predicted trough (mcg/mL): 12.50 Total body weight is being used for vancomycin dosing. Recommendations: Give Vancomycin 1500 mg q 24 hrs with an expected Cpeak of 32.9 mcg/ml and an expected Ctrough of 12.50 mcg/ml ----Vanco only - ignore for aminoglycosides----- CLvanco= 2.95 L/hr AUC 0-24 /MARK Data: MARK 0.5 mcg/mL: AUC/MARK: 1016.9 MARK 1.0 mcg/mL: AUC/MARK: 508.5 --------- MARK 1.5 mcg/mL: AUC/MARK: 339.0 MARK 2.0 mcg/mL: AUC/MARK: 254.2
[2024-07-14 08:18] LABS: Lactic Acid 18.7 mmol/L (0.7-2.1)
[2024-07-14 08:38] LABS: Coronavirus 19, PCR Not Detected (NotDetected); Influenza A, PCR Not Detected (NotDetected); Influenza B, PCR Not Detected (NotDetected)
[2024-07-14] MEDS: VANCOMYCIN/WATER FOR INJ (PEG) 1.5 GM/300 ML PIGGYBACK IV (08:46)
[2024-07-14] MEDS: SODIUM CHLORIDE 0.9% 10ML VIAL 10 ML IV (08:51)
[2024-07-14] MEDS: PANTOPRAZOLE 40MG VIAL 40 MG IV (08:51)
--- NOTE | 2024-07-14 09:35 | ECG_ITS ---
APPROVED REPORT Exam: Resting ECG HR:76 bpm ECG Measurements Heart Rate 76 AXES QRSd 138 QRS 124 QT 390 T -62 QTc 420 Conclusion UNCERTAIN IRREGULAR RHYTHM - but appears to be 3rd degree AV block INTRAVENTRICULAR CONDUCTION DELAY [130+ ms QRS DURATION] ABNORMAL ECG UNCONFIRMED REPORT Electronically signed by : James Chong MD 07/15/2024 08:06:37
[2024-07-14] MEDS: EPINEPHrine 5 MG in 0.9 % SODIUM CHLORIDE 250 ML 48.96 MG IV (09:55)
--- NOTE | 2024-07-14 10:43 | PC.NURSE ---
09 notified Daniela Bennett and Dr Ma face to face that pt changing heart rhythm. pt transitions from tachycardia to nsr, to unknown rhythm. when pt hr is in the 110's pt bp is 90's - 110's sys. when pt is in rate below 100 (abn rhythm and nsr) pt sys is in the 70's. ekg obtained while in abd rhythm and given to cardiology.
[2024-07-14] MEDS: AMIODARONE HCL 150 MG in DEXTROSE 5 % IN WATER 100 ML 618 MG IV (11:16)
[2024-07-14] MEDS: AMIODARONE HCL 900 MG in DEXTROSE 5 % IN WATER 500 ML 34.53 MG IV (11:35)
--- NOTE | 2024-07-14 11:37 | EXP.CARD.PN ---
Subjective Subjective Date: 07/14/24 Time: 11:37 Principal diagnosis: cardiogenic shock, possible pneumonia Interval history: 64-year-old white male complains of pain and sweating. Doesn't want to pursue any further treatment Echo Conclusion Technically difficult study due to poor accoustic windows. Severe reduction in LV systolic function (LVEF 25%). Mild LA dilation. Moderate to severe aortic stenosis. ADELFO by continuity equation is 1.1 cm2. Mean AV gradient 37 mmHg. Max AV gradient 65 mmHg. Peak velocity 3.8 m/s. Moderate MR. Mild AI. Electronically signed by : Karo Betts MD 07/14/2024 08:59:40 Exam Data for Last 24 hours Vital signs and Labs for Last 24 Hours: Temp Pulse Resp BP Pulse Ox O2 Del Method O2 Flow Rate 97.8 F 112 H 18 91/54 L 98 Nasal Cannula 2 07/14/24 11:30 07/14/24 11:30 07/14/24 11:30 07/14/24 11:30 07/14/24 11:30 07/14/24 11:00 07/14/24 11:00 FiO2 2 07/14/24 05:00 Laboratory Results - last 24 hr 07/13/24 12:20: Blood Type B Positive, Antibody Screen Negative, Crossmatch (AHG) See Detail 07/13/24 13:30: Troponin I 0.82 H 07/13/24 15:00: ABG pH 6.90 L*, ABG pCO2 20.9 L, ABG pO2 290.7 H, ABG HCO3 4.4 L, ABG Total CO2 5.1 L, ABG O2 Saturation 99, ABG Base Excess -26.0 L 07/13/24 15:28: O2 % 100%, ABG pH 7.08 L*, ABG pCO2 16.5 L, ABG pO2 169.0 H, ABG HCO3 4.7 L, ABG Total CO2 5.3 L, ABG O2 Saturation 99, ABG Base Excess -25.3 L 07/13/24 18:45: Iron 77, TIBC 478 H, Iron Saturation 16.61240, Troponin I 59.50 H, Procalcitonin 07/13/24 19:02: Specimen Source Art line, O2 % 3l nc, ABG pH 7.30 L, ABG pCO2 13.8 L, ABG pO2 99.4, ABG HCO3 6.6 L, ABG Total CO2 7.0 L, ABG O2 Saturation 96, ABG Base Excess -19.9 L, Joe Test Non applicable 07/13/24 19:41: Hgb 8.7 L D, Hct 30.5 L 07/13/24 20:30: POC Glucose 350 H* 07/13/24 22:34: Specimen Source A-line, O2 % 3lnc, ABG pH 7.37, ABG pCO2 12.5 L, ABG pO2 91.2, ABG HCO3 7.1 L, ABG Total CO2 7.5 L, ABG O2 Saturation 96, ABG Base Excess -18.2 L, Joe Test Non applicable 07/13/24 23:05: Hgb 8.4 L, Hct 29.2 L 07/14/24 02:36: POC Glucose 352 H* 07/14/24 04:00: Specimen Source Left radial, O2 % 3l nc, ABG pH 7.35, ABG pCO2 12.7 L, ABG pO2 85.3, ABG HCO3 6.9 L, ABG Total CO2 7.3 L, ABG O2 Saturation 94, ABG Base Excess -18.7 L, Joe Test Non applicable 07/14/24 04:35: WBC 18.6 H D, RBC 3.98 L, Hgb 8.3 L, Hct 28.3 L, MCV 73.3 L, MCH 20.9 L, MCHC 28.5 L, RDW 18.0 H, Plt Count 329, MPV 9.8, Neut % (Auto) 89.9 H, Lymph % (Auto) 4.8 L, [place] % (Auto) 5.1, Eos % (Auto) 0.0 L, Baso % (Auto) 0.1, Neut # (Auto) 16.8 H, Lymph # (Auto) 0.9, [place] # (Auto) 1.0, Eos # (Auto) 0.0, Baso # (Auto) 0.0, Total Counted 100, Neutrophils % (Manual) 89 H, Lymphocytes % (Manual) 9 L, Monocytes % (Manual) 1 L, Metamyelocytes % 1.0, Nucleated RBCs 1, Platelet Estimate Not Reportable, RBC Morphology Normal, Polychromasia 1+, Anisocytosis 1+, Ovalocytes 1+, Acanthocytes (Spur) 2+, Sodium 140, Potassium 4.3, Chloride 104, Carbon Dioxide < 5 L* D, Anion Gap 35.3 H, BUN 22 H, Creatinine 1.80 H D, Estimated Creat Clear 49, Estimated GFR 38 L, Est GFR ( Amer) 46 L D, Glucose 282 H, Calcium 7.4 L, Magnesium 1.8, Total Bilirubin 1.7 H, AST 4554 H* D, ALT 5322 H*, Alkaline Phosphatase 136 H, Total Protein 5.4 L, Albumin 3.6, Globulin 1.8, Albumin/Globulin Ratio 2.0 H 07/14/24 05:18: POC Glucose 317 H* 07/14/24 07:45: Lactate 18.7 H 07/14/24 08:24: SARS-CoV-2 (PCR) Not detected, Influenza A Untype (PCR) Not detected, Influenza Type B (PCR) Not detected I & O for Last 24 hours: Intake & Output 07/11/24 07/12/24 07/13/24 07/14/24 11:59 11:59 11:59 11:59 Intake Total 65.657 / 65.657 4703.011 / 4703.011 Output Total 6295 / 6295 Balance 65.657 / 65.657 -1591.989 / -1591.989 Weight 190 lb 184 lb 8.995 oz Microbiology Reports for the Last 24 Hours: Microbiology 07/13/24 09:47 Blood Blood Culture - Preliminary NO GROWTH AFTER 24 HOURS 07/13/24 09:47 Blood Blood Culture - Preliminary NO GROWTH AFTER 24 HOURS Constitutional Constitutional: moderate distress *Routine Respiratory Exam Respiratory: Present crackles *Routine Cardiovascular Exam Cardiovascular: Present RRR and murmur Progress Note: A&P Assessment and plan (1) HFrEF (heart failure with reduced ejection fraction): Status: Acute (2) Cardiogenic shock: Status: Acute (3) Septic shock: Status: Acute (4) NSTEMI (non-ST elevated myocardial infarction): Status: Acute (5) Acute blood loss anemia: Status: Acute (6) GI bleed: Status: Acute (7) Acute pulmonary edema: Status: Acute (8) Aortic stenosis, severe: Status: Acute Assessment and Plan Assessment and Plan for All Diagnoses:: 1. Cardiogenic Shock/Septic Shock in setting of newly diagnosed HFrEF -Pt on Vasopressin, levophed and epinephrine with SBP of 80-100 mm Hg -Echo EF 25% this admission (recent echo in 06/2024 EF of 55%) -Unable to start goal-directed medical therapy due to hypotension 2. NSTEMI -Tmax 2.2, now declining -recent cath reviewed with no plans for repeat LHC at this time 3. Suspected left pneumothorax was incorrect 4. Chronic iron deficiency anemia with recent GI blood loss -Blood transfusion in progress 5. Bronchitis noted on CTA of the chest with no evidence of pulmonary embolism -Chest x-ray concerning for right middle lung aspiration pneumonitis, also volume overload 6. Severe aortic stenosis with severe cardiomyopathy, concern for low-flow low gradient setting which may underestimate the severity of aortic stenosis Consider transfer to [facility] for consideration of Impella 5.5 device. Balloon pump is not an option due to severe peripheral vascular disease. Poor prognosis. Discussed with both Dr. Marcelo and Dr. Betts
[2024-07-14 11:57] LABS: Reflex Lactic Add Lactic Reflex
--- NOTE | 2024-07-14 12:41 | P.DN_ITS ---
Discharge Sum: Prov Provider Primary care physician: Dodie Thompson Visit Care Team Role Provider Type Dodie Thompson Primary Care Provider Referring Yehuda Betts MD Other Providers Staff Physician Arash Grigsby MD Other Providers Consulting Physician Jude Marcelo MD Other Providers Staff Physician CORIE Reddy Other Providers Physician Elementary [employer] Teacher Zander Saenz MD Other Providers Consulting Physician Jerzy Powell MD Other Providers Consulting Physician CORIE [place] Other Providers Physician Elementary Science Teacher Andres Aiken MD Other Providers Staff Physician Leticia Pink APRN Other Providers Nurse Practitioner Dasia Corrales APRN Other Providers Nurse Practitioner Erica Funes MD Emergency Provider ER Physician Dior Mosley MD Admit Provider Staff Physician Attending Provider Admitting clinician: Dior Mosley Attending physician on admission: Dior Mosley Consults: 07/13/24 13:25 Cardiology Consult [Consult to Cardiology] [CONS] Routine Consulting Provider: Cardiology Reason For Consult: cardiogenic shock, elevated troponin Pronouncing clinician: Renato Ma Discharge Sum: Diag PCOD Cause of : Cardiogenic shock Contributing Factors (1) HFrEF (heart failure with reduced ejection fraction): (2) Aortic stenosis, severe: (3) Cardiogenic shock: (4) Septic shock: (5) NSTEMI (non-ST elevated myocardial infarction): (6) Acute blood loss anemia: (7) GI bleed: (8) Acute pulmonary edema: Discharge Sum: Summary Date and Time Date of admission: 07/13/24 14:07 Date of : 07/14/24 Time of : 12:34 Hospital Course prior to Hospital Course Information: Patient is a 64-year-old male with past medical history of hypertension diabetes mellitus CAD status post stenting 3 weeks ago at [facility] who presents to the hospital due to low blood pressure. Patient is not able to provide much history due to clinical condition, reportedly patient presented to emergency department due to bright red blood per rectum, diaphoresis, chest pain and shortness of breath. Patient presented in shock state in the ER. Started on Levophed, epinephrine, vasopressin. Cardiology was consulted to assist with care. Concern for septic shock versus cardiogenic shock. Initially received fluids in the ER, decision made to diurese given high concern for septic shock in the setting of decreased ejection fraction that is acutely worse. Attempt made to diuresis and decrease strain on heart with his cardiogenic shock, this was unsuccessful. Echo obtained showing reduced ejection fraction and severe aortic stenosis. Discussion with patient about treatment goals including possible transfer for treatment with Impella to help support his cardiogenic shock. Patient did not want to pursue aggressive means or transfer. Concerned about his stability for transfer. Elected to transition to DO NOT RESUSCITATE status. Was treated with broad-spectrum antibiotics for sepsis in the setting of possible concurrent pneumonia. Patient unfortunately continued to decline. Received 2 units packed red blood cells due to anemia and worsening troponin from demand ischemia. Developed shock liver and MANISH. Patient's condition continued to decline. Proceeded to go into acute cardiac arrest and became asystolic at approximately 12:32 in the afternoon. Patient monitored and took his last breath at approximately 12:34 at which point time of was called. Additional Data Confirmation of as documented by pronouncing clinician: no pulse, no respirations, no heart sounds and pupils fixed and dilated Family: at bedside Attending/PCP notified?: Yes Attending physician: Renato Ma MD Was code activated?: No Autopsy requested?: No sock examiner notified?: Yes Organ bank notified?: Yes Advance directives: No Hospice patient?: No
[2024-07-14 12:51] LABS: Lactic Acid Follow Up (RFLX 1) 21.2 mmol/L (0.7-2.1)
--- NOTE | 2024-07-14 13:14 | PC.NURSE ---
Dr Ma at bedside at 1230 to have goals of care meeting. while at bedside pt noted to become unresponsive, eyes noted to roll upwards. pt hr dropped to 0. pt noted to have agonal respirations. md at bedside. pt pronounced at 1234. Graphic Editor contacted at [phone]. pt ruled out as coroners case. Scott contacted at [phone] [phone]. pt ruled out for donation
[2024-07-18 05:06] LABS: POC Glucose,Bedside 292 (70-110)
== END 2024-07-14 12:34 | disposition expired | DRG 871 ==
LOC: ER 10:51 → 2ND 14:01
PROVIDERS: Internal Medicine Adolescent Medicine; Internal Medicine Pulmonary Disease; Nurse Practitioner Family; Admitting Provider Internal Medicine; Emergency Provider Student in an Organized Health Care Education/Training Program; PCP Family Medicine; Visit Provider Internal Medicine
DX: A41.9 Sepsis, unspecified organism (principal); I21.4 Non-ST elevation (NSTEMI) myocardial infarction; R65.21 Severe sepsis with septic shock; I50.23 Acute on chronic systolic (congestive) heart failure; J96.01 Acute respiratory failure with hypoxia; J69.0 Pneumonitis due to inhalation of food and vomit; K72.00 Acute and subacute hepatic failure without coma; D62 Acute posthemorrhagic anemia; K92.2 Gastrointestinal hemorrhage, unspecified; I42.9 Cardiomyopathy, unspecified; N17.9 Acute kidney failure, unspecified; I24.89 Other forms of acute ischemic heart disease; R57.0 Cardiogenic shock; I35.0 Nonrheumatic aortic (valve) stenosis; I25.10 Atherosclerotic heart disease of native coronary artery without angina pectoris; Z95.5 Presence of coronary angioplasty implant and graft; F17.210 Nicotine dependence, cigarettes, uncomplicated; D50.9 Iron deficiency anemia, unspecified; J40 Bronchitis, not specified as acute or chronic; I73.9 Peripheral vascular disease, unspecified; I11.0 Hypertensive heart disease with heart failure; E11.51 Type 2 diabetes mellitus with diabetic peripheral angiopathy without gangrene; Z66 Do not resuscitate; Z79.02 Long term (current) use of antithrombotics/antiplatelets; Z79.84 Long term (current) use of oral hypoglycemic drugs
CPT/HCPCS: 36556; 36415; 71045; 71275; 74174; 80053; 81001; 82803; 82962; 83540; 83550; 83605; 83735; 83880; 84145; 84484; 85007; 85014; 85018; 85025; 85027; 85610; 86078; 86850; 87040; 87086; 87636; 93005; 93306; 94761; 99291; 99292; C1751; J0282; J1205; J1939; J1940; J2543; J7060; J7120; P9016; Q9967